=== PATIENT | female | born 1965 | race Caucasian/White ===

== ENCOUNTER 2024-12-13 10:01 | Outpatient (AMB) | payer MEDICAID, SELFPAY ==
--- NOTE | 2024-12-13 10:03 | A.OFFVIS_ITS ---
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 States pain started in 2020 ago and has worsen. She is experiencing shooting pain, numbness and tingling down her left arm in to her hand. States all her fingers go numb and swells as well, she has weakness in hand and is causing her to drop objects. She recalls receiving an injection in her shoulder many years ago in [place] but doesn't recall if it helped or not. She has not done P.T in the past. Reports she fell about 1 year ago and her shoulder was bruised. She believes her pain started after she had her covid vaccine in 2020. No EMG done. Patient did not bring her medication list but will bring in next time. She is aware she may also call us with her medication list. Nuclear Fuel Enrichment Technician Required: Yes Nuclear Fuel Enrichment Technician Name: Jean-Pierre [id number] Accompanied by: Jamir friend Allergies No Known Allergies Allergy (Verified 12/13/24 10:24) HPI Comments Details: Here for left shoulder per intake above. Since 2020 after COVID vaccine. Nowadays, pain is on upper trapezius and back of left shoulder, radiating to arm, down to hands, with numbness on all his fingers. Denies posterior neck pain. Sometimes left hand gets swollen. Also reports pain on left wrist. No past imaging or work up for this. History of lumbar and knee pain. [facility] Social History Current occupational status: unemployed and disabled Current occupation: right hand Review of Systems Const All systems reviewed & are unremarkable except as noted in HPI and below Physical Exam Constitutional: Patient appears to be in no acute distress, well nourished and well developed. MSK: Inspection reveals appropriate head and neck positioning. Some tenderness over left trapezius. Tender in left subacromial area. Cervical ROM was full. Spurling's sign negative. Left shoulder limited with active range of motion especially in flexion and abduction due to pain. No ligamentous laxity or crepitance. No increased effusion. Empty can test is positive left. Drop arm test is negative. Speed's test is negative. Neer's test is positive left. Hawkin's test is positive left. Apprehension test and Relocation test are negative. Positive left carpal compression and left elbow Tinel's sign. Fingers appeared swollen although symmetric to the right? Strength is 5/5 in all muscle groups tested. No increased tone noted. Neurological: Neurologic examination of the upper and lower extremities was nonfocal with intact sensation, muscle stretch reflexes and without focal motor deficits . Harrington?s negative bilaterally. Babinski was down going bilaterally. Clonus was negative. Gait is non-antalgic without loss of balance. Results Reviewed Results Reviewed: I reviewed records from the following: Reviewed notes from [facility] Dr. Singh 2023. 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 Prescribed gabapentin. Assessment & Plan Assessment & Plan (1) Left shoulder pain: Code(s): M25.512 - Pain in left shoulder Category: Medical Qualifiers: Chronicity: chronic Qualified Code(s): M25.512 - Pain in left shoulder; G89.29 - Other chronic pain (2) Numbness of left hand: Code(s): R20.0 - Anesthesia of skin Category: Medical (3) Joint pain: Code(s): M25.50 - Pain in unspecified joint Category: Medical Qualifiers: Joint pain location: wrist Laterality: left Qualified Code(s): M25.532 - Pain in left wrist Plan Chronic left shoulder pain. Left hand numbness. But she also has other diffuse joint pain and question of finger joint inflammation. Sending for left shoulder and left wrist/hand x-rays today. We will take some blood tests including STEPHON, RF and uric acid. Ruling out more systemic or autoimmune reasons for joint pain. We will schedule for EMG left upper extremity to rule out Carpal Tunnel Syndrome. Referring to physical therapy to work on range of motion of left shoulder. Assessment and plan discussed with patient, and patient was agreeable. All questions were answered thoroughly. Follow up 2 months or after PT and all the workup. Luz Israel MD, SETH Board Certified, [place] [employer] and Rehabilitation (ABPMR) Board Certified, [place] Board [employer] Electro[employer]ostic [employer] (ABEM) Orders: Orders NE nerve conduction velocity Today R20.0 - Anesthesia of skin NE electromyogram (EMG) Today R20.0 - Anesthesia of skin XR shoulder LT min 2V Today M25.50 - Pain in unspecified joint, M25.512 - Pain in left shoulder, R20.0 - Anesthesia of skin XR hand wrist LT Today M25.50 - Pain in unspecified joint, R20.0 - Anesthesia of skin STEPHON Reflex Titer and Pattern Today M25.50 - Pain in unspecified joint, M25.512 - Pain in left shoulder, R20.0 - Anesthesia of skin Rheumatoid Factor Today M25.50 - Pain in unspecified joint, M25.512 - Pain in left shoulder, R20.0 - Anesthesia of skin Uric Acid Today M25.50 - Pain in unspecified joint, M25.512 - Pain in left shoulder, R20.0 - Anesthesia of skin PT Evaluation and Treatment Today M25.512 - Pain in left shoulder Coding Level of Care Code New Pt Level 4 (93270) Diagnoses Chronic left shoulder pain M25.512; G89.29 Chronicity: chronic Numbness of left hand R20.0 Arthralgia of left wrist M25.532 Joint pain location: wrist Laterality: left
[2024-12-13 10:24] VITALS: BMI 60.8
== END 2024-12-13 12:11 | disposition home or self-care (01) ==
PROVIDERS: PCP Physician Assistant Medical; Visit Provider Physical Medicine & Rehabilitation
DX: M25.512 Pain in left shoulder (principal); G89.29 Other chronic pain; R20.0 Anesthesia of skin; M25.532 Pain in left wrist
CPT/HCPCS: 99203

== ENCOUNTER 2024-12-13 11:04 | Outpatient (REF) | payer MEDICAID, SELFPAY ==
[2024-12-13 12:16] LABS: Uric Acid 6.1 mg/dL (2.4-5.7)
[2024-12-13 12:18] LABS: Rheumatoid Factor < 13.0 IU/mL (<15.0)
[2024-12-18 13:39] LABS: Anti Nuclear Antibody Screen NEGATIVE (NEGATIVE)
== END 2024-12-13 11:05 | disposition home or self-care (01) ==
LOC: HO.10HDL 11:04
PROVIDERS: Visit Provider Physical Medicine & Rehabilitation
DX: M25.512 Pain in left shoulder (principal); M25.50 Pain in unspecified joint; R20.0 Anesthesia of skin
CPT/HCPCS: 36415; 84550; 86038; 86431

== ENCOUNTER 2025-01-04 11:59 | Outpatient (REF) | payer MEDICAID, SELFPAY | END 2025-01-04 12:00 | disposition home or self-care (01) | LOC: HO.NEURO 11:59 | PROVIDERS: PCP Physician Assistant Medical; Visit Provider Physical Medicine & Rehabilitation | DX: R20.0 Anesthesia of skin (principal) ==

== ENCOUNTER → 2025-01-04 12:02 | Outpatient (BNV) | payer MEDICAID, SELFPAY | PROVIDERS: PCP Physician Assistant Medical; Visit Provider Physical Medicine & Rehabilitation | DX: R20.0 Anesthesia of skin (principal); R20.2 Paresthesia of skin | CPT/HCPCS: 95886; 95911 ==

== ENCOUNTER 2025-01-09 12:37 | Outpatient (RCR) | payer MEDICAID, SELFPAY ==
--- NOTE | 2025-01-10 12:12 | MHC.PT.EP ---
[facility] [place] Office [place] Office [place] Office [address] [phone] F: [phone] F: [phone] F: [phone] F: [phone] Physical Therapy Plan of Care Date of Evaluation: 01/09/25 Date of Surgery: Diagnosis: LEFT shoulder pain (MD Dx) LEFT cervical radiculopathy and subacromial impingement syndrome (PT Dx) RS Assessment: Patient is a pleasant 59 y.o. Lithuanian speaking female who is referred to PT by Dr. Luz Israel MD of [facility] with Dx of LEFT shoulder pain. PT Dx is LEFT cervical radiculopathy and subacromial impingement syndrome. Patient impairments include chronic pain with radiculopathy, limited ROM in lumbar spine and hip, weakness in LEs; especially R quad, bilateral glutes, abdominal/core musculature with antalgic gait pattern, muscle guarding. Patient current functional limitations are lying on L shoulder, lifting items with L arm, carrying, wash her hair (reach and maintain arm there), rotation of her neck. Patient will benefit from skilled PT to address aforementioned impairments and functional limitations to meet established goals. Frequency and Duration: The patient will be seen 1-2x/week for 4 weeks Short Term Goals: 2 weeks Patient demonstrates consistency and independence with HEP to self manage symptoms. Patient presents with neutral cervical and shoulder posture in sitting without cues for correction. Usp Goals: 4 weeks Patient presents with increased cervical rotation 60 degrees bilaterally to look over shoulders for grocery shopping and driving. Patient presents with increased bilateral shoulder flexion AROM 120 degrees to be able to reach top of head for hair care. Treatment Plan: Modalities to reduce pain, spasms and effusion. Manual therapy to restore motion and function. Therapeutic exercise to improve strength and flexibility. Neuromuscular re-education for posture and balance. Therapeutic activities to return to functional activities of daily living. Electronically signed by: Fanta Holley, PT, DPT Please sign and return to therapist. Thank you for your referral.
--- NOTE | 2025-02-27 14:57 | MHC.PT.DC ---
[facility] [place] Office [place] Office [place] Office [address] Sander Hines [address] [phone] F: [phone] F: [phone] F: [phone] F: [phone] Physical Therapy Discharge Report Diagnosis: LEFT shoulder pain (MD Dx) LEFT cervical radiculopathy and subacromial impingement syndrome (PT Dx) RS Date of Surgery: Date of Evaluation: 01/09/25 Date of Discharge: 02/27/25 Treatments to Date: 1 Cancellations to Date: No Shows to Date: Discharge Status: Recommend MD Follow-up Discharge Summary: Amira only attended PT initial evaluation. She did not schedule any FUP appointments, unclear if she was waiting for insurance authorization or approval. Unable to determine effectiveness of PT interventions on her condition due to only being seen for initial evaulation. She was given education on posture and anatomy and HEP with stretches that visit. Electronically signed by: Fanta Holley, PT, DPT Please sign and return to therapist. Thank you for your referral.
== END 2025-02-27 14:57 | disposition home or self-care (01) ==
LOC: HO.PT 12:37
PROVIDERS: PCP Physician Assistant Medical; Visit Provider Physical Medicine & Rehabilitation
DX: M25.512 Pain in left shoulder (principal)
CPT/HCPCS: 97110; 97161; 97162

== ENCOUNTER 2025-02-07 09:41 | Outpatient (AMB) | payer MEDICAID, SELFPAY ==
[2025-02-07 10:28] VITALS: BMI 60.8
--- NOTE | 2025-02-07 10:28 | MHC.OFFVIS ---
Vital Signs 02/07/25 10:28 Height 4 ft 5 in Weight 243 lb BMI 60.8 Intake Visit Reasons: Inj-left shoulder injection Intake Note: Amira 59 yr old female presents today for her follow up visit for her left shoulder injection. At her last visit she was ordered a EMG study to R/O CTS and physical therapy for her shoulder. Patient had EMG done and states she has not attended P.T as P.T is refusing to schedule patient ,stating she has non compliance with attendance policy and needs info from insurance. Patients states she has went to P.T 3x and each time she was told they cant see her. Allergies No Known Allergies Allergy (Verified 02/07/25 10:33) HPI Comments Details: She is here for scheduled left shoulder injection. STEPHON and RF negative. Uric acid slightly elevated. Primary care physician has done some workup and referring her to Rheumatology. EMG done 01/04/2025 left upper extremity normal. [facility] Social History Current occupational status: unemployed and disabled Current occupation: right hand Physical Exam Vital Signs: BMI result Body Mass Index 60.8 Office Procedures AMB Joint Injection/Aspiration Joint Injection/Aspiration Details: Consent was obtained. The distal, lateral, and posterior edges of the LEFT acromion are palpated. Area is cleansed with betadine solution. A 27 gauge needle is inserted just inferior to the posterolateral edge of the acromion. The needle is directed toward the opposite chest. A solution containing [40 mg] Kenalog and [3 ml] of 2% Lidocaine is injected. Patient tolerated procedure well without complications. Post-injection instructions given. Primary Site: left shoulder Injected: 40 mg of, Kenalog and with 3 mL of ( 2% lidocaine) Coding 70487 - Large joint Procedure code (CPT) selection complete Results Reviewed Results Reviewed: Ordering Physician: Luz Cedeno Date of Service: 12/13/24 Procedure(s): XR shoulder LT min 2V Accession Number(s): [id number] cc: Shanda Law PA-C; Luz Cedeno~ EXAMINATION: XR SHOULDER, LEFT CLINICAL INFORMATION: M25.512 - Pain in left shoulder COMPARISON: None available. TECHNIQUE: 2 views of the left shoulder. FINDINGS: There is mild reduction in the AC joint space with periocular spurring. The glenohumeral joint spaces preserved. No visible acute fracture, dislocation or subluxation seen. The soft tissues are normal. XR/XR shoulder LT min 2V IMPRESSION: Mild degenerative changes left AC joint. Electronically signed by: Larry Orourke MD 12/13/2024 03:29 PM EST Assessment & Plan Assessment & Plan (1) DJD of left shoulder: Code(s): M19.012 - Primary osteoarthritis, left shoulder Category: Medical Qualifiers: Osteoarthritis type: primary Qualified Code(s): M19.012 - Primary osteoarthritis, left shoulder (2) Joint pain: Code(s): M25.50 - Pain in unspecified joint Category: Medical Qualifiers: Joint pain location: wrist Laterality: left Qualified Code(s): M25.532 - Pain in left wrist Plan tolerated procedure well. Assessment and plan discussed with patient, and patient was agreeable. All questions were answered thoroughly. Follow up 2-3 months. Luz Israel MD, SETH Board Certified, [place] Board [employer] and Rehabilitation (ABPMR) Board Certified, [place] Board [employer] Electrodiagnostic [employer] (ABEM) Orders: Orders AMB Joint Injection/Aspiration Today M19.012 - Primary osteoarthritis, left shoulder, M25.532 - Pain in left wrist Coding Level of Care Code Procedure Only Diagnoses Primary osteoarthritis of left shoulder M19.012 Osteoarthritis type: primary Arthralgia of left wrist M25.532 Joint pain location: wrist Laterality: left CPT Codes Coding - 59021 Large joint: 66643 - Large joint ([id number])
--- OUTSIDE RECORDS SUMMARY | 2025-02-07 11:36 | XMS_ITS | Clinical Summary ---
Author Organization [facility] Address [address] [place] [address] Care Team Providers Care Editor Sound Name Role Phone Shanda Law PA-C Primary Care Provider [phone] Source Comments PLEASE NOTE, if this patient is a minor, it may be UNLAWFUL to discuss sensitive information that is contained in these records (such as FAMILY PLANNING, MENTAL HEALTH or SUBSTANCE ABUSE) with the minor patient's parent or other person without the patient's specific authorization.[facility] Allergies Active Allergy Reactions Criticality Noted Date Comments Metformin Hives High 08/21/2024 Povidone-Iodine 11/24/2023 Shrimp Swelling High 12/27/2017 Medications miscellaneous medical supply miscIndications :Varicose veins of right leg with edema by miscellaneous route once daily Dx: Varicose Veins of right leg with edema, VICKI: 99, Supply: Compression Stockings (compression goal 15-20 mmHg) 2 Each 022 Active meloxicam (MOBIC) 7.5 mg tabletIndicatio ns:Spondylosis, thoracic Take 1 Tablet by mouth once daily 60 Tablet 1 023 Active naproxen (NAPROSYN) 500 mg tablet Take 500 mg by mouth 2 (two) times daily 024 Active tiZANidine (ZANAFLEX) 4 mg tablet Take 4 mg by mouth 3 (three) times daily as needed for muscle spasms 024 Active celecoxib (CELEBREX) 200 mg capsule TAKE 1 CAPSULE BY MOUTH ONCE DAILY WITH FOOD OR MILK 024 Active cholecalciferol , vitamin D3, (VITAMIN D3) 25 mcg (1,000 unit) capsuleIndicati ons:Vitamin D deficiency Take 1 Capsule by mouth once daily 90 Capsule 1 024 Active gabapentin (NEURONTIN) 100 mg capsule Take 1 Capsule by mouth 3 (three) times daily 90 Capsule 2 024 Active blood-glucose meter monitoring kitIndications: New onset type 2 diabetes mellitus (HCC-CMS) Use to test blood glucose twice daily. (Freestyle Lite) 1 Each 025 Active blood sugar diagnostic (BLOOD GLUCOSE TEST) stripsIndicatio ns:New onset type 2 diabetes mellitus (HCC-CMS) Use to test blood glucose twice daily. (Freestyle Lite) 100 Each 025 Active lancets 28 gaugeIndication s:New onset type 2 diabetes mellitus (HCC-CMS) Use to test blood glucose twice daily. (Freestyle Lite) 100 Each 025 Active alcohol swabsIndication s:New onset type 2 diabetes mellitus (HCC-CMS) Use to test blood glucose twice daily. 100 Each 025 Active hydrOXYzine HCL (ATARAX) 25 mg tablet TOME KAREN O DOS TABLETAS POR V A ORAL EVERY NIGHT AL ACOSTARSE CUANDO SEA NECESARIO 025 Active sertraline (ZOLOFT) 25 mg tablet TOME KAREN TABLETA POR V A ORAL TODOS LOS D WITH FOOD 025 Active empagliflozin (JARDIANCE) 10 mg tabIndications: New onset type 2 diabetes mellitus (HCC-CMS) Take 1 Tablet by mouth every morning 90 Tablet 1 025 Active lisinopriL-hydr ochlorothiazide 20-12.5 mg per tabletIndicatio ns:Essential hypertension TOME 1 TABLETA POR VIA ORAL TODOS [place] 90 Tablet 1 025 Active calcium carbonate-vitam in D3 600 mg-10 mcg (400 unit) tabletIndicatio ns:Vitamin D deficiency TOME DOS TABLETAS POR VIA ORAL TODOS [place] 180 Tablet 1 025 Active calcium carbonate-vitam in D3 600 mg-10 mcg (400 unit) tabletIndicatio ns:Vitamin D deficiency Take 2 Tablets by mouth once daily 180 Tablet 1 024 2024 Discontinued lisinopriL-hydr ochlorothiazide 20-12.5 mg per tabletIndicatio ns:Essential hypertension Take 1 Tablet by mouth once daily 90 Tablet 1 024 2024 Discontinued Active Problems Problem Noted Date Diagnosed Date Nontoxic nodular goiter 09/21/2024 Severe obesity (HCC-CMS) 07/05/2024 Primary osteoarthritis of both knees 04/04/2024 History of thyroid nodule 04/04/2024 Spondylosis, thoracic 10/17/2023 Adult BMI 40.0-44.9 kg/sq m (HCC-CMS) 02/09/2019 Vitamin D deficiency 02/09/2019 Prediabetes 01/10/2019 Essential hypertension 12/27/2017 Hypercholesteremia 12/27/2017 Colon cancer screening 12/27/2017 Breast cancer screening 12/27/2017 Overview (01/12/2018): 01/11/[address] [facility]- Mammogram Screening Digital No findings suspicious for malignancy. Please note, a negative imaging evaluation should never overrule a strongly suspicious finding on physical exam. BIRADS: Category 2: Benign BILATERAL Recommendation: Routine screening mammogram BILATERAL in 1 year. Multiple thyroid nodules 12/27/2017 Chronic pain of left knee 12/27/2017 Resolved Problems Problem Noted Date Diagnosed Date Resolved Date Encounter for routine adult health examination without abnormal findings 12/27/2017 Type 2 diabetes mellitus wit hout complication, without long-term current use of insulin (HCC-CMS) 12/27/2017 01/10/2019 Encounters Date Type Department Care Team Description 01/21/2025 3:20 PM EST Office Visit [address] [phone] Shanda Law PA-C New onset type 2 diabetes mellitus (HCC-CMS) (Primary Dx); Multiple joint pain 01/07/2025 10:00 AM EST Telemedicine Visit [address] [address] Shanda Law PA-C Dizziness (Primary Dx); Prediabetes; Primary hypertension; History of thyroid nodule; Abnormal blood level of uric acid; Dysuria; Left flank pain; New onset type 2 diabetes mellitus (HCC-CMS) 12/19/2024 3:00 PM EST [facility] [address] [place] [address] Caren Rothman RHD Encounter for dental examination (Primary Dx); Caries of enamel (incipient) 12/19/2024 Travel from Last 3 Months Immunizations Name Administration Dates Next Due Flu, Preservative Free 12/12/2021,10/23/2018, Hep B, Adult/Adol (ENERGIX/RECOMBIVAX) 0,06/25/2019,05/23/2019 Influenza (FLUBLOK),recombinant,injectable,preservati ve Free 09/20/2024 Moderna COVID-19 Vaccine, re d cap blue label, 12+ Primary Series 12/12/2021,04/16/2021,03/21/2021 TDAP 02/09/2019 ZOSTER VACCINE, RECOMBINANT (SHINGRIX) 3,07/19/2022 Family History Medical History Relation Name Comments No Known Problems Daughter 1 No Known Problems Daughter 2 Alzheimer's Disease Father Cancer Father Cancer Maternal Grandfather Alzheimer's Disease Mother No Known Problems Son Relation Name Status Comments Daughter 1 Alive Daughter 2 Alive Father Alive Maternal Grandfather Mother Alive Son Alive Social History Tobacco Use Types Packs/Day Years Used Date Smoking Tobacco: Former Cigarettes 2 37 1 981 - 2017 Smokeless Tobacco: Never Tobacco Cessation:Counseling Given: Not Answered Alcohol Use Standard Drinks/Week Comments No 0 (1 standard drink = 0.6 oz pur e alcohol) Social Connections Answer Date Recorded Connectedness 1 01/07/2025 Financial Resource Strain Answer Date R ecorded Financial Resource Strain 1 2024 Stress Answer Date Recorded Stress 1 01/07/2025 Physical Activity Answer Date Recorded Physical Activity 0 07/17/2019 Food Insecurity Answer Date Recorded Food 1 01/07/2025 Transportation Needs Answer Date Record ed Transportation 1 01/07/2025 Housing Stability Answer Date Recorded Housing 1 01/07/2025 Safety and Environment Answer Date [place] r[place] Safety 1 04/04/2024 Utilities Answer Date Recorded Utilities 1 01/07/2025 Employment Answer Date Recorded Stress 0 03/25/2023 Comments No Sex and Gender Information Value Date Recorded Sex Assigned at Female 12/27/2017 11:05 AM PST Legal Sex Female 12:37 PM PST Gender Identity Female 12/27/2017 11:05 AM PST Sexual Orientation Straight 12/27/2017 11 :05 AM PST Last Filed Vital Signs Vital Sign Reading Time Taken Comments Blood Pressure 120/78 01/21/2025 3:24 PM EST Pulse 84 01/21/2025 3:24 PM EST Temperature 36.9 ??C (98.4 ??F) 01/21/2025 3:24 PM ES T Respiratory Rate 20 01/21/2025 3:24 PM EST Oxygen Saturation 98% 10/10/2024 2:30 PM EST Inhaled Oxygen Concentration - - Weight 108.9 kg (240 lb) 01/21/2025 3:24 PM EST Height 162.6 cm (5' 4.02 ) 01/21/2025 3:24 PM ES T Body Mass Index 41.18 01/21/2025 3:24 PM EST Plan of Treatment Upcoming Encounters Date Type Department Care Team (Late st Contact Info) Description 02/12/2025 1:20 PM EDT Office Visit [address] [phone] Shanda Law PA-C [address] [place] [address] 02/12/2025 2:40 PM EDT Office Visit [address] [phone] Pauline Cortes RN [address] [place] [address] 06/19/2025 3:40 PM EDT Office Visit [facility] [address] [place] [phone] Caren Rothman RHD [address] [place] [address] Health Maintenance Due Date Last Done Comments Diabetes Foot Exam 1967 HPV Screening 1967 Retinopathy Screening 1980 Imm-Pneumococcal (1 of 2 - PCV) 1986 CT Colonography 2012 Colonoscopy 2012 Colorectal Cancer Screening 2012 FIT/gFOBT 2012 Fecal DNA 2012 Flexible Sigmoidoscopy 2012 Lung Cancer Screening 01/28/2024 01/27/2023 , 01/27/2023, 01/26/2023 [id number] ( season) 2025 12/12/2021, 04/16/2021, 03/21/2021 Postponed from 07/29/2024 (Patient postponement) Depression Monitoring 04/06/2025 01/07/2025 , 08/27/2024, 07/05/2024, Additional history exists Dental Prophy 06/20/2025 12/19/2024, 02/0 06/2024, 04/05/2023, Additional history exists Annual Preventive Care Visit 07/05/2025 07/05/2024, 10/12/2023, 07/19/2022, Additional history exists Tobacco Screening 07/05/2025 07/05/2024 Diabetes HbA1c 07/09/2025 01/09/2025, 06/30, 04/05/2024, Additional history exists Breast Cancer Screening (Mammogram) 08/08/2025 08/08/2024, 08/05/2023, 08/05/2023, Additional history exists Dental BW 12/21/2025 12/19/2024, 02/0 06/2024, 04/05/2023, Additional history exists Dental Examination 12/21/2025 12/19/2024, 0 01/05/2024, 04/05/2023, Additional history exists Dental Perio Charting 12/21/2025 12/19/2024 , 01/05/2024, 05/11/2022 Lipid Screening 01/09/2026 01/09/2025, 06/30, 04/05/2024, Additional history exists Serum Creatinine 01/09/2026 01/09/2025, , 04/05/2024, Additional history exists Diabetes Microalbumin (w/Creatinine) 01/22/2026 01/22/2025, 01/02/2018 Cervical Cancer Screening 10/12/2026 Pap + HPV 10/12/2026 10/12/2023, 01/04/2020 Pap Smear 10/12/2026 10/12/2023, 05/2020, 01/04/2020, Additional history exists Imm-DTaP/Tdap/Td (2 - Td or Tdap) 02/09/2029 02/09/2019 Dental FMX/Pano 12/21/2029 12/19/2024 HIV Screening Completed 02/09/2019 Hepatitis C Screening Completed 02/09/2019 Imm-Hepatitis B Completed 01/04/2020, 05/29, 05/23/2019 Imm-Zoster, Recombinant Completed 03/25/2023, 07/19 Imm-Influenza Completed 09/20/2024, 11/28, 10/23/2018, Additional history exists Alcohol and Drug Screen Completed 01/07/20, 08/27/2024, 07/05/2024, Additional history exists Cervical Ablation/Cold-Knife Conization Discontinued Cervical Cryotherapy Discontinued Colposcopy Discontinued Endometrial Biopsy Discontinued Excision/Leep Discontinued HPV Genotyping Discontinued Vaginal Pap Discontinued Vulvoscopy Discontinued Procedures Procedure Name Priority Date/Time Associated Diagnosis Comments ??RHEUMATOID ARTHRITIS DIAGNOSTIC PANEL 1 Routine 01/22/2025 4:25 PM EST MICROALBUMIN/CREATINI NE RATIO, URINE, RANDOM Routine 01/22/2025 4:25 PM EST New onset type 2 diabetes mellitus (HCC-CMS) SEDIMENTATION RATE RBC AUTOMATED Routine 01/22/2025 4:25 PM EST Multiple joint pain C-REACTIVE PROTEIN Routine 01/22/2025 4: 25 PM EST Multiple joint pain REFERRAL SCANNED DOCUMENT 01/21/2025 3:00 AM EST IMAGING SCANNED DOCUMENT 01/21/2025 3:00 AM EST RFLX - REFLEXIVE URINE CULTURE Routine 01/09/2025 8:49 AM EST URINALYSIS, COMPLETE W/REFLEX TO CULTURE Routine 01/09/2025 8:49 AM EST Dysuria ASSAY OF BLOOD/URIC ACID Routine 01/09/2025 8:35 AM EST Abnormal blood level of uric acid THYROID PANEL WITH TSH Routine 01/09/2025 8:35 AM EST History of thyroid nodule HGBA1C W/MPG Routine 01/09/2025 8:35 AM EST Dizziness Prediabetes LIPID PANEL Routine 01/09/2025 8:35 AM EST Dizziness Prediabetes Primary hypertension COMPREHENSIVE METABOLIC PANEL Routine 01/09/2025 8:35 AM EST Dizziness Prediabetes Primary hypertension BLOOD COUNT COMPLETE AUTO&AUTO DIFRNTL WBC Routine 01/09/2025 8:35 AM EST Dizziness Prediabetes Primary hypertension US RENAL (KIDNEYS) BILAT Routine 01/08/2025 3:00 AM EST Dysuria Left flank pain INTRAORAL - COMP SERIES OF RADIOGRAPHIC IMAGES Routine 12/19/2024 3:00 PM EST Caries of enamel (incipient) Encounter for dental examination DENTAL CASE MANAGEMENT - MOTIVATIONAL INTV Routine 12/19/2024 3:00 PM EST Caries of enamel (incipient) Encounter for dental examination PROPHYLAXIS - ADULT Routine 12/19/2024 3 :00 PM EST Caries of enamel (incipient) Encounter for dental examination COMP PERIODONTAL EVALUATION - NEW/EST PATIENT Routine 12/19/2024 3:00 PM EST Caries of enamel (incipient) Encounter for dental examination PERIODIC ORAL EVALUATION ESTABLISHED PATIENT Routine 12/19/2024 3:00 PM EST Caries of enamel (incipient) Encounter for dental examination CARIES RISK ASSESSMENT & DOC FINDING LOW RISK Routine 12/19/2024 3:00 PM EST Caries of enamel (incipient) Encounter for dental examination NUTRITIONAL COUNSELING CONTROL OF DENTAL DISEASE Routine 12/19/2024 3:00 PM EST Caries of enamel (incipient) Encounter for dental examination ORAL HYGIENE INSTRUCTIONS Routine 12/19/2024 3:00 PM EST Caries of enamel (incipient) Encounter for dental examination ORAL CANCER SCREENING Routine 12/19/2024 3:00 PM EST Caries of enamel (incipient) Encounter for dental examination CASE PRESENTATION SUBS DTL & EXTENSIVE TX PLN Routine 12/19/2024 3:00 PM EST Encounter for dental examination IMAGING SCANNED DOCUMENT 12/13/2024 3:00 AM EST IMAGING SCANNED DOCUMENT 12/13/2024 3:00 AM EST IMAGING SCANNED DOCUMENT 12/13/2024 3:00 AM EST IMAGING SCANNED DOCUMENT 12/13/2024 3:00 AM EST REFERRAL TO ORTHOPEDICS Routine 12/13/2024 3:00 AM EST Chronic left shoulder pain REFERRAL SCANNED DOCUMENT 12/06/2024 3:00 AM EST OTHER ORDERS SCANNED DOCUMENT 11/20/2024 3:00 AM EST REFERRAL FOR MAMMOGRAM Routine 08/08/2024 3:00 AM EDT Breast cancer screening by mammogram THIN PREP IMAGE PAP + HPV RNA E6/E7 W/RFLX HPV 16, 18/45 Routine 10/12/2023 1:22 PM EST Encounter for Papanicolaou smear for cervical cancer screening LOW DOSE CT LUNG SCREENING Routine 01/27/2023 3:00 AM EST Screening for lung cancer ANTIBODY HIV-1&HIV-2 SINGLE RESULT Routine 02/09/2019 10:32 AM EDT Encounter for general adult medical examination with abnormal findings HEPATITIS A,B,C PANEL Routine 02/09/2019 10:32 AM EDT Encounter for general adult medical examination with abnormal findings from Last 3 Months or Most Recently Relevant to Health Maintenance Results * ??RHEUMATOID ARTHRITIS DIAGNOSTIC PANEL 1 (01/22/2025 4:25 PM EST) RHEUMATOID FACTOR <10 <14 IU/mL [employer] CYCLIC CITRULLINATED PEPTIDE CCP AB IGG <16 19 UNITS [employer] Comment: Reference Range Negative: ?<20 Weak Positive: ? 20-39 Moderate Positive: ?? 40-59 Strong Positive: ? >59 INTERPRETATION See Note [employer] Comment: These serologic results may be found in 10-20% of patients with polyarthritis that is clinically and radiologically indistinguishable from RA. 01/22/2025 4:25 PM EST 01/22/2025 4:26 PM EST Shanda Law PA-C LAB - BLOOD DRAW Final Resul t Performing Organization Address [facility] Co de Phone Number [facility] [address] [address], [facility] [address] [address] * MICROALBUMIN/CREATININE RATIO, URINE, RANDOM (01/22/2025 4:25 PM EST) CREATININE, RANDOM URINE 83 20 - 275 mg/dL [facility] MICROALBUMIN 0.3 mg/dL [employer] [facility] Comment: Reference Range Not established MICROALBUMIN/CREA TININE RATIO, RANDOM URINE 4 <30 mg/g creat [facility] Comment: The ADA defines abnormalities in albumin excretion as follows: Albuminuria Category ?Result (mg/g creatinine) Normal to Mildly increased ?? <30 Moderately increased ? 30-299 Severely increased ? > OR = 300 The ADA recommends that at least two of three specimens collected within a 3-6 month period be abnormal before considering a patient to be within a diagnostic category. Urine Urine specimen / Unknown 01/22/2025 4:25 PM EST 01/22/2025 4:26 PM EST us Shanda Law PA-C LAB - NO BLOOD DRAW Final Re sult Performing Organization Address City/[facility] Co de Phone Number [facility] [address] [address], [facility] [address] [address] * (ABNORMAL) C-REACTIVE PROTEIN (01/22/2025 4:25 PM EST) C-REACTIVE PROTEIN 13.9(H) <8.0 mg/L [facility] [employer] [facility] Blood Blood / Unknown 01/22/2025 4 :25 PM EST 01/22/2025 4:26 PM EST [employer] Law PA-C LAB - BLOOD DRAW Edited Resu lt - Final Performing Organization Address City/[facility]/ZIP Co de Phone Number [facility] [address] [address], [employer] [address] [address] * (ABNORMAL) SEDIMENTATION RATE RBC AUTOMATED (01/22/2025 4:25 PM EST) SED RATE BY MODIFIED WESTERGREN 45(H) 0 - 30 mm/h [facility] Blood Blood / Unknown 01/22/2025 4 :25 PM EST 01/22/2025 4:26 PM EST deltamethodcea PA-C LAB - BLOOD DRAW Edited Resu lt - Final Performing Organization Address [facility] de Phone Number [facility] [address] [address], [employer] [address] [address] * REFERRAL SCANNED DOCUMENT (01/21/2025 3:00 AM EST) Only the most recent of2 resultswithin the time period is included. 01/21/2025 3:00 AM EST [employer] PA-C SCAN REFERRAL Final Result * IMAGING SCANNED DOCUMENT (01/21/2025 3:00 AM EST) Only the most recent of5 resultswithin the time period is included. 01/21/2025 3:00 AM EST [employer] Law PA-C SCAN IMAGING Final Result * URINALYSIS, COMPLETE W/REFLEX TO CULTURE (01/09/2025 8:49 AM EST) COLOR YELLOW YELLOW [email or web address] [facility] APPEARANCE CLEAR CLEAR [facility] SPECIFIC GRAVITY 1.020 1.001 - 1.035 [facility] URINE PH 6.5 5.0 - 8.0 [facility] GLUCOSE NEGATIVE NEGATIVE [facility] BILIRUBIN NEGATIVE NEGATIVE [facility] KETONES NEGATIVE NEGATIVE [facility] OCCULT BLOOD NEGATIVE NEGATIVE [facility] URINE PROTEIN NEGATIVE NEGATIVE N[facility] NITRITE NEGATIVE NEGATIVE [facility] LEUKOCYTE ESTERASE NEGATIVE NEGATIVE [facility] URINE LEUKOCYTES NONE SEEN < OR = 5 [facility] RBC NONE SEEN < OR = 2 NOM[facility] SQUAMOUS EPITHELIAL CELLS NONE SEEN < OR = 5 NOM[facility] BACTERIA NONE SEEN NONE SEEN [facility] HYALINE CAST NONE SEEN NONE SEEN [facility] SEE NOTE See Below [facility] Comment: This urine was analyzed for the presence of WBC, RBC, bacteria, casts, and other formed elements. Only those elements seen were reported. Urine Urine specimen / Unknown 01/09/2025 8:49 AM EST 01/09/2025 8:49 AM EST deltamethodomar DEXTER-C LAB - NO BLOOD DRAW Final Re sult Performing Organization Address [facility]/ZIP Co de Phone Number [facility] [address] [address], [facility] [address] [address] * RFLX - REFLEXIVE URINE CULTURE (01/09/2025 8:49 AM EST) REFLEXIVE URINE CULTURE See Below [email or web address] Comment:NO CULTURE INDICATED 01/09/2025 8:49 AM EST 01/09/2025 8:49 AM EST [employer] PA-C LAB - NO BLOOD DRAW Final Re sult Performing Organization Address City/[facility] Co de Phone Number [facility] [address] [address], [employer] [address] [address] * (ABNORMAL) HGBA1C W/MPG (01/09/2025 8:35 AM EST) HEMOGLOBIN A1C 6.6(H) <5.7 % of total Hgb [employer] Comment: For someone without known diabetes, a hemoglobin A1c value of 6.5% or greater indicates that they may have diabetes and this should be confirmed with a follow-up test. For someone with known diabetes, a value <7% indicates that their diabetes is well controlled and a value greater than or equal to 7% indicates suboptimal control. A1c targets should be individualized based on duration of diabetes, age, comorbid conditions, and other considerations. Currently, no consensus exists regarding use of hemoglobin A1c for diagnosis of diabetes for children. ?? MEAN PLASMA GLUCOSE 158 mg/dL (calc) [employer] Blood Blood / Unknown 01/09/2025 8 :35 AM EST 01/09/2025 8:35 AM EST us Shanda Law PA-C LAB - BLOOD DRAW Final Resul t Performing Organization Address [facility] Co de Phone Number [employer] [address] [address], [place] [address] [address] * THYROID PANEL WITH TSH (01/09/2025 8:35 AM EST) TSH 2.46 0.40 - 4.50 mIU/L [employer] T-3 UPTAKE 27 22 - 35 % [employer] [facility] [place] [employer] T-4 (THYROXINE), TOTAL 7.6 5.1 - 11.9 mcg/dL [employer] FREE T4 INDEX (T7) 2.1 1.4 - 3.8 [facility] Blood Blood / Unknown 01/09/2025 8 :35 AM EST 01/09/2025 8:35 AM EST us Shanda Law PA-C LAB - BLOOD DRAW Final Resul t Performing Organization Address [facility]/ZIP Co de Phone Number [email or web address] [address] [place] [address], [employer] [address] [address] * (ABNORMAL) BLOOD COUNT COMPLETE AUTO&AUTO DIFRNTL WBC (01/09/2025 8:35 AM EST) WHITE BLOOD CELL COUNT 6.7 3.8 - 10.8 Thousand/ uL [employer] RED BLOOD CELL COUNT 4.26 3.80 - 5.10 Million/u L [employer] HEMOGLOBIN 12.1 11.7 - 15.5 g/dL [employer] HEMATOCRIT 39.4 35.0 - 45.0 % [employer] MCV 92.5 80.0 - 100.0 fL [employer] MCH 28.4 27.0 - 33.0 pg [employer] MCHC 30.7(L) 32.0 - 36.0 g/dL [employer] Comment: For adults, a slight decrease in the calculated MCHC value (in the range of 30 to 32 g/dL) is most likely not clinically significant; however, it should be interpreted with caution in correlation with other red cell parameters and the patient's clinical condition. RDW 12.4 11.0 - 15.0 % [employer] PLATELET COUNT 331 140 - 400 Thousand/ uL [employer] MPV 10.8 7.5 - 12.5 fL [employer] ABSOLUTE NEUTROPHILS 4,355 1,500 - 7,800 cells/uL [employer] ABSOLUTE LYMPHOCYTES 1,782 850 - 3,900 cells/uL [employer] ABSOLUTE MONOCYTES 395 200 - 950 cells/uL [employer] ABSOLUTE EOSINOPHILS 114 15 - 500 cells/uL [employer] ABSOLUTE BASOPHILS 54 0 - 200 cells/uL [employer] NEUTROPHILS PCT 65 % [employer] [facility] LYMPHOCYTES 26.6 % [facility] [employer] [facility] MONOCYTES 5.9 % [facility] [facility] EOSINOPHILS 1.7 % [facility] AGNTattvaS Dsg[employer] BASOPHILS 0.8 % [facility] [employer] Blood Blood / Unknown 01/09/2025 8 :35 AM EST 01/09/2025 8:35 AM EST Shanda Law PA-C LAB - BLOOD DRAW Edited Resu lt - Final [email or web address] [address] [address], [email or web address] [facility] [address] [place] [address] * ASSAY OF BLOOD/URIC ACID (01/09/2025 8:35 AM EST) URIC ACID 5.0 2.5 - 7.0 mg/dL [facility] Comment: Therapeutic target for gout patients: <6.0 mg/dL ?? Blood Blood / Unknown 01/09/2025 8 :35 AM EST 01/09/2025 8:35 AM EST Shanda Law PA-C LAB - BLOOD DRAW Edited Resu lt - Final [facility] [address] [address], [facility] [address] [address] * (ABNORMAL) LIPID PANEL (01/09/2025 8:35 AM EST) Pathologist [facility] CHOLESTEROL, TOTAL 194 <200 mg/dL [facility] HDL CHOLESTEROL 49(L) > OR = 50 mg/dL [facility] TRIGLYCERIDES 123 <150 mg/dL N[facility] LDL-CHOLESTEROL 122(H) 99 mg/dL (calc) [facility] Comment: Reference range: <100 Desirable range <100 mg/dL for primary prevention; ?? <70 mg/dL for patients with CHD or diabetic patients with > or = 2 CHD risk factors. LDL-C is now calculated using the Brendan-Lauren calculation, which is a validated novel method providing better accuracy than the Friedewald equation in the estimation of LDL-C. Brendan OBRIEN et al. JOSUÉ. 2013;310(19): 5066-8648 (http://education.[employer]/faq/PXP387) CHOL/HDLC RATIO 4.0 <5.0 (calc) [facility] NON-HDL CHOLESTEROL 145(H) <130 mg/dL (calc) [facility] Comment: For patients with diabetes plus 1 major ASCVD risk factor, treating to a non-HDL-C goal of <100 mg/dL (LDL-C of <70 mg/dL) is considered a therapeutic option. Blood Blood / Unknown 01/09/2025 8 :35 AM EST 01/09/2025 8:35 AM EST us Shanda Law PA-C LAB - BLOOD DRAW Final Resul t [email or web address] [address] [address], [email or web address] [facility] [address] [place] [address] * (ABNORMAL) COMPREHENSIVE METABOLIC PANEL (01/09/2025 8:35 AM EST) Pathologist [facility] GLUCOSE 115(H) 65 - 99 mg/dL [facility] Comment: ?Fasting reference interval For someone without known diabetes, a glucose value between 100 and 125 mg/dL is consistent with prediabetes and should be confirmed with a follow-up test. UREA NITROGEN (BUN) 17 7 - 25 mg/dL [facility] CREATININE (blood) 0.70 0.50 - 1.03 mg/dL [facility] EGFR 101 > OR = 60 mL/min/1. 73m2 [facility] BUN/CREATININE RATIO SEE NOTE: [facility] Comment: ?? Not Reported: BUN and Creatinine are within ?? reference range. ? SODIUM 138 135 - 146 mmol/L [facility] POTASSIUM 4.4 3.5 - 5.3 mmol/L [facility] CHLORIDE 100 98 - 110 mmol/L [facility] CARBON DIOXIDE 29 20 - 32 mmol/L [facility] CALCIUM 10.2 8.6 - 10.4 mg/dL [facility] PROTEIN, TOTAL 7.4 6.1 - 8.1 g/dL [facility] ALBUMIN 4.7 3.6 - 5.1 g/dL [facility] GLOBULIN 2.7 1.9 - 3.7 g/dL (calc) [facility] ALBUMIN/GLOBULI N RATIO 1.7 1.0 - 2.5 (calc) [facility] BILIRUBIN, TOTAL 0.3 0.2 - 1.2 mg/dL [facility] ALKALINE PHOSPHATASE 66 37 - 153 U/L [facility] AST 15 10 - 35 U/L [facility] ALT 11 6 - 29 U/L [facility] Blood Blood / Unknown 01/09/2025 8 :35 AM EST 01/09/2025 8:35 AM EST Shanda Law PA-C LAB - BLOOD DRAW Edited Resu lt - Final [facility] [address] [address], [facility] [address] [address] * US RENAL (KIDNEYS) BILAT (01/08/2025 3:00 AM EST) 01/08/2025 3:0 0 AM EST Impressions [facility] - 01/09/2025 8:05 AM EST IMPRESSION: ? No stone, solid mass mass or hydronephrosis of either kidney. Oleg Santos MD Signed by Oleg Santos MD Read by: OLEG SANTOS M.D. Reviewed and Electronically Signed by: OLEG SANTOS M.D. Narrative [facility] - 01/09/2025 8:05 AM EST Original Report PROCEDURE: ??US RENAL INDICATION: ??Dysuria. TECHNIQUE: ??Ultrasound of the Kidneys. Technologist: ALLEN The technologist reports that the examination is limited. COMPARISON: ??None available FINDINGS: ?? The technologist describes the examination as limited. Incidental note is made of fatty liver. The right kidney measures 11.8 cm in length. ??Renal cortical echotexture is normal. There is no hydronephrosis. ??There are no stones. ??There are no cysts. The left kidney measures 11.3 cm in length. ??Renal cortical echotexture is normal. ?? There is borderline fullness of the renal pelvis. ??There is no hydronephrosis. ?? There are no stones. ??There are no cysts. The technologist submitted one single image of the urinary bladder. ??Evaluation of the bladder is regarded as incomplete. Procedure Note Default, [facility] Provider - 01/09/2025 Original Report PROCEDURE: US RENAL INDICATION: Dysuria. TECHNIQUE: Ultrasound of the Kidneys. Technologist: ALLEN The technologist reports that the examination is limited. COMPARISON: None available FINDINGS: The technologist describes the examination as limited. Incidental note is made of fatty liver. The right kidney measures 11.8 cm in length. Renal cortical echotexture is normal. There is no hydronephrosis. There are no stones. There are no cysts. The left kidney measures 11.3 cm in length. Renal cortical echotexture is normal. There is borderline fullness of the renal pelvis. There is no hydronephrosis. There are no stones. There are no cysts. The technologist submitted one single image of the urinary bladder. Evaluation of the bladder is regarded as incomplete. IMPRESSION: IMPRESSION: No stone, solid mass mass or hydronephrosis of either kidney. Oleg Santos MD Signed by Oleg Santos MD Read by: OLEG SANTOS M.D. Reviewed and Electronically Signed by: OLEG SANTOS M.D. Shanda Law PA-C IMG ULTRASOUND Edited Resul t - Final [facility] Corporate Office [address], [address] [place] [address], * REFERRAL TO ORTHOPEDICS (12/13/2024 3:00 AM EST) 12/13/2024 3:00 AM EST Bárbara Yepez PA-C REFERRAL Final Result * OTHER ORDERS SCANNED DOCUMENT (11/20/2024 3:00 AM EST) 11/20/2024 3:00 AM EST us Land Ani MCDANIEL SCAN OTHER ORDERS Final Resu lt * REFERRAL FOR MAMMOGRAM (08/08/2024 3:00 AM EDT) 08/08/2024 3:00 AM EDT us Shanda Law [facility] IMG RFL MAMMO Final Result * THIN PREP IMAGE PAP + HPV RNA E6/E7 W/RFLX HPV 16, 18/45 (10/12/2023 1:22 PM EST) CLINICAL INFORMATION See Note [facility] Comment:Routine exam LMP See Note [facility] Comment:[id number] PREV. PAP [facility] PREV. BX See Note [facility] Comment:NONE GIVEN SOURCE See Note [facility] Comment:Cervix STATEMENT OF ADEQUACY See Note [facility] Comment: Satisfactory for evaluation. Endocervical/transformation zone component present. INTERPRETATION/RESU LT See Note [facility] Comment: Cytology Results: Negative for intraepithelial lesion or malignancy. COMMENT See Note [facility] Comment: This Pap test has been evaluated with computer assisted technology. INTERIOR WIRER See Note [facility] Comment: YP, CT(ASCP) CT screening location: [address] ??[address] COMMENT [facility] HPV MRNA E6/E7 Not Detected Not Detected [facility] Comment: Methodology: Electronic Systems Technician-Mediated Amplification This assay detects E6/E7 viral messenger RNA (mRNA) from 14 high-risk HPV types (16,18,31,33,35,39,45,51,52,56,58,59,66,68). Cervical sources are required for HPV testing. If a vaginal source from a patient who has had a total hysterectomy with removal of cervix was submitted, please contact the testing laboratory for alternative testing options. For additional information, please refer to http://education.[employer]/faq/CPY164p1 (This link if provided for information/ educational purposes only.) Swab Cervix uteri structure / Unknown 10/12/2023 1:22 PM EST 10/13/2023 8:41 AM EST Narrative [facility] - 10/14/2023 12:49 PM EST EXPLANATORY NOTE: The Pap is a screening test for cervical cancer. It is not a diagnostic test and is subject to false negative and false positive results. It is most reliable when a satisfactory sample, regularly obtained, is submitted with relevant clinical findings and history, and when the Pap result is evaluated along with historic and current clinical information. us Bárbara Yepez PA-C LAB - NO BLOOD DRAW Final Re sult [facility] [address] [place] [address], [facility] [address] [place] [phone] * LOW DOSE CT LUNG SCREENING (01/27/2023 3:00 AM EST) 01/27/2023 3:00 AM EST us Bárbara Yepez PA-C IMG CT Final Result * (ABNORMAL) HEPATITIS A,B,C PANEL (02/09/2019 10:32 AM EDT) HEPATITIS B SURFACE ANTIBODY NEGATIVE NEGATIVE [facility] HEPATITIS B SURFACE ANTIGEN NEGATIVE NEGATIVE [facility] Comment: Over the counter supplements containing high doses of biotin may interfere with this assay. ??If interference is suspected, patients shoud be retested after refraining from biotin supplements for 72 hours. HEPATITIS C VIRUS DIAGNOSTIC NEGATIVE NEGATIVE [facility] HEPATITIS B CORE ANTIBODY NEGATIVE NEGATIVE [facility] HEPATITIS A ANTIBODY TOTAL POSITIVE(A) NEGATIVE [facility] Comment: Over the counter supplements containing high doses of biotin may interfere with this assay. ??If interference is suspected, patients shoud be retested after refraining from biotin supplements for 72 hours. Blood specimen (specimen) Blood / Unknown 02/09/2019 10:32 AM EDT 02/09/2019 10:36 AM EDT Narrative [facility] - 02/09/2019 12:38 PM EDT [employer] [address] Rubber Insulator - Anita Keating MD PT ID [id number] ORD# [id number] Ste[facility] LAB - BLOOD DRAW Edited Result - Final Performing Organization Address City/[facility]/ZIP Co de Phone Number [address] [address], [place] [phone] * HIV-1 & HIV-2 ANTIBODIES (02/09/2019 10:32 AM EDT) [facility] HIV 1 AND 2 ANTIBODY SCREEN NEGATIVE NEGATIVE [facility] Comment: This assay is a 4th generation assay allowing for earlier detection of HIV infection by detecting the presence of the HIV-1 p24 antigen as well as the traditional antibodies to HIV type 1 (including group O) and type 2. ??Use of a 4th generation assay is the current CDC recommendation for HIV screening. Blood specimen (specimen) Blood / Unknown 02/09/2019 10:32 AM EDT 02/09/2019 10:36 AM EDT [facility] - 02/09/2019 1:06 PM EDT Sissy Dunham, a member of [address] [address] Rubber Insulator - Anita Keating MD PT ID [id number] ORD# [id number] [facility] - BLOOD DRAW Final Result [address] [address], [place] [phone] from Last 3 Months or Most Recently Relevant to Health Maintenance [place] [address] [employer] Care Teams Editor Sound Relationship Specialty Start Date End Date Shanda Law PA-C [address] [place] [address] PCP - General FAMILY MEDICINEISACC 01/31/24
--- OUTSIDE RECORDS SUMMARY | 2025-02-07 11:36 | XMS_ITS | Encounter Summary ---
Author Organization [facility] Address [address] [place] [address] Care Team Providers Care Cement Tester Assistant Name Role Phone Unavailable Primary Care Provider Unavailabl e Encounter Details Date Type Department Care Team (Latest Contact Info) Description 02/07/2019 Abstract [facility] CONVERSIONS Dental, Provider, DDS Social History Tobacco Use Types Packs/Day Years Used Date Smoking Tobacco: Never Assessed Comments Unknown Sex and Gender Information Value Date Recorded Sex Assigned at Female 09/27/2022 10:34 AM EDT Legal Sex Female 10:34 AM EDT Gender Identity Not on file Sexual Orientation Not on file documented as of this encounter Plan of Treatment Not on file documented as of this encounter Visit Diagnoses Not on filedocumented in this encounter
--- OUTSIDE RECORDS SUMMARY | 2025-02-07 11:37 | XMS_ITS | Encounter Summary ---
Author Organization [facility] Address [address] [place] [address] Care Team Providers Care Crossing Flagman Name Role Phone Shanda Law PA-C Primary Care Provider + [phone] Reason for Referral * Rheumatology (Routine) - Pending Review Specialty Diagnoses / Procedures Referred By Heidy dawson Referred To Contact Diagnoses Multiple joint pain Shanda Law PA-C [address] [place] [address] Phone: tel: fax: [address] [address] Phone: tel: fax: Referral ID Status Reason Start Date Expiration Date Visits Requested Visits Authorized [id number] Pending Review Specialty Services Required 01/21/2025 01/21/2026 1 1 Comments Amira Kurtz Tomas Aquino is a 59 year old female patient who presents today for follow up. Recent labs show patient is now diabetic. Did lose 3 lbs since last visit. Patient states that she doesn't exercise at all. Patient states she has injured herself on treadmill so she stopped. Patient told not to exercise for now because she has tendonitis in her left ankle. Patient states she was exercising and did something wrong. Has not been back. Patient is getting a procedure done for her varicose veins. Patient had rheum factor and STEPHON done, both negative at ortho. She has multiple joint pain though and was told to get ref to rheum from her ortho. Reason for Visit * Reason Comments Follow Up Hypertension Diabetes Mellitus Pre -diabetic Encounter Details Date Type Department Care Team (Late st Contact Info) Description 01/21/2025 3:20 PM EST Office Visit [facility] [address] [place] [address] Shanda Law PA-C [address] [place] [address] New onset type 2 diabetes mellitus (HCC-CMS) (Primary Dx); Multiple joint pain Social History Tobacco Use Types Packs/Day Years Used Date Smoking Tobacco: Former Cigarettes 2 37 1 2017 Smokeless Tobacco: Never Alcohol Use Standard Drinks/Week Comments No 0 [...] Orientation Straight 12/27/2017 11 :05 AM PST documented as of this encounter Last Filed Vital Signs Vital Sign Reading Time Taken Comments Blood Pressure 120/78 01/21/2025 3:24 PM EST Pulse 84 01/21/2025 3:24 PM EST Temperature 36.9 ??C (98.4 ??F) 01/21/2025 3:24 PM ES T Respiratory Rate 20 01/21/2025 3:24 PM EST Oxygen Saturation - - Inhaled Oxygen Concentration - - Weight 108.9 kg (240 lb) 01/21/2025 3:24 PM EST Height 162.6 cm (5' 4.02 ) 01/21/2025 3:24 PM ES T Body Mass Index 41.18 01/21/2025 3:24 PM EST documented in this encounter Progress Notes * Shanda Law PA-C - 01/21/2025 3:38 PM EST Subjective: CC: Follow Up, Hypertension, and Diabetes Mellitus (Pre -diabetic) HPI: Amira Aquino is a 59 year old female patient who presents today for follow up. Recent labs show patient is now diabetic. Did lose 3 lbs since last visit. Patient states that she doesn't exercise at all. Patient states she has injured herself on treadmill so she stopped. Patient told not to exercise for now because she has tendonitis in her left ankle. Patient states she was exercising and did something wrong. Has not been back. Patient is getting a procedure done for her varicose veins. Patient had rheum factor and STEPHON done, both negative at ortho. She has multiple joint pain though and was told to get ref to rheum from her ortho. Last 3 BP Readings: Date: BP: 01/21/2025 120/78 12/19/2024 119/68 10/10/2024 136/82 Lab Results Component Value Date TRIGLYC 123 01/09/2025 CHOL 194 01/09/2025 HDL 49 (L) 01/09/2025 LDL 122 (H) 01/09/2025 CHOLHDL 4.0 01/09/2025 NONHDL 145 (H) 01/09/2025 Lab Results Component Value Date HGBA1C 6.6 (H) 01/09/2025 HGBA1C 6.1 (H) 07/27/2024 HGBA1C 6.0 (H) 04/05/2024 Allergies Allergen Reactions Metformin Hives Shrimp Swelling Povidone-Iodine Patient Active Problem List Diagnosis Essential hypertension Hypercholesteremia Colon cancer screening Breast cancer screening Multiple thyroid nodules Chronic pain of left knee Prediabetes Adult BMI 40.0-44.9 kg/sq m (HCC-CMS) Vitamin D deficiency Spondylosis, thoracic Primary osteoarthritis of both knees History of thyroid nodule Severe obesity ([facility]) Nontoxic nodular goiter Current Outpatient Medications: hydrOXYzine HCL (ATARAX) 25 mg tablet, TOME KAREN O DOS TABLETAS POR V A ORAL EVERY NIGHT AL ACOSTARSE CUANDO SEA NECESARIO, Disp: , Rfl: sertraline (ZOLOFT) 25 mg tablet, TOME KAREN TABLETA POR V A ORAL TODOS LOS D WITH FOOD, Disp: , Rfl: alcohol swabs, Use to test blood glucose twice daily., Disp: 100 Each, Rfl: 5 blood sugar diagnostic (BLOOD GLUCOSE TEST) strips, Use to test blood glucose twice daily. (Freestyle Lite), Disp: 100 Each, Rfl: 5 blood-glucose meter monitoring kit, Use to test blood glucose twice daily. (Freestyle Lite), Disp: 1 Each, Rfl: 0 lancets 28 gauge, Use to test blood glucose twice daily. (Freestyle Lite), Disp: 100 Each, Rfl: 5 gabapentin (NEURONTIN) 100 mg capsule, Take 1 Capsule by mouth 3 (three) times daily, Disp: 90 Capsule, Rfl: 2 cholecalciferol, vitamin D3, (VITAMIN D3) 25 mcg (1,000 unit) capsule, Take 1 Capsule by mouth oncedaily, Disp: 90 Capsule, Rfl: 1 celecoxib (CELEBREX) 200 mg capsule, TAKE 1 CAPSULE BY MOUTH ONCE DAILY WITH FOOD OR MILK, Disp: , Rfl: lisinopriL-hydrochlorothiazide 20-12.5 mg per tablet, Take 1 Tablet by mouth once daily, Disp: 90 Tablet, Rfl: 1 calcium carbonate-vitamin D3 600 mg-10 mcg (400 unit) tablet, Take 2 Tablets by mouth once daily, Disp: 180 Tablet, Rfl: 1 naproxen (NAPROSYN) 500 mg tablet, Take 500 mg by mouth 2 (two) times daily, Disp: , Rfl: tiZANidine (ZANAFLEX) 4 mg tablet, Take 4 mg by mouth 3 (three) times daily as needed for muscle spasms, Disp: , Rfl: meloxicam (MOBIC) 7.5 mg tablet, Take 1 Tablet by mouth once daily, Disp: 60 Tablet, Rfl: 1 miscellaneous medical supply [facility], by miscellaneous route once daily Dx: Varicose Veins of right leg with edema, VICKI: 99, Supply: Compression Stockings (compression goal 15-20 mmHg), Disp: 2 Each, Rfl: 0 Review of Systems Remainder ROS: See HPI, systems reviewed and are otherwise negative or noncontributory. Objective: Vitals: 01/21/25 1524 BP: 120/78 Pulse: 84 Resp: 20 Temp: 98.4 ??F (36.9 ??C) TempSrc: Oral Weight: 240 lb (108.9 kg) Height: 5' 4.02 (1.626 m) Body mass index is 41.18 kg/m??. Physical Exam Constitutional: General: She is not in acute distress. Cardiovascular: Rate and Rhythm: Normal rate and regular rhythm. Pulmonary: Effort: Pulmonary effort is normal. No respiratory distress. Breath sounds: Normal breath sounds. Neurological: Mental Status: She is alert and oriented to person, place, and time. 01/07/2025 9:27 AM Little interest or pleasure in doing things Not at all Feeling down, depressed or hopeless [include irritable if under 18] Not at all Trouble falling or staying asleep, or sleeping too much Not at all Feeling tired or having little energy Not at all Poor appetite or overeating Not at all Feeling bad about yourself - or that you are a failure or have let yourself or your family down Notat all Trouble concentrating on things like school work, reading or watching TV? Not at all Moving or speaking so slowly that other people could have noticed? Or the opposite - being so fidgety or restless that you have been moving around a lot more than usual Not at all Thoughts you would be better off or of hurting yourself in some way Not at all If you checked off any problems, how difficult have these problems made it for you to do your work,take care of things at home, or get along with other people? Not difficult at all PHQ-9 Total Score (Auto Calculated) 0 Depression Severity: None-minimal Assessment and Plan: Amira Aquino is a 59 year old female patient who was seen today for follow up. Will start on jardiance 10 mg for DM for now. Rheum ref made. Advised to call with any questions or concerns. Weight management:BMI follow up plan: The patient was counseled regarding nutrition and physical activity. Counseled for healthy lifestyle, dietary habits, physical activity and regular exercise.Encouraged to make healthier eating choices with less refined carbs and smaller portions along with regular exercise 3-4x/week for at least 20-30min. Avoid fried foods, oily foods and limit foods rich in dense calories. Increase fruits and vegetables. E11.9 New onset type 2 diabetes mellitus (HCC-[facility]) (primary encounter diagnosis) Plan : MICROALBUMIN/CREATININE RATIO, URINE, RANDOM EMPAGLIFLOZIN 10 MG TABLET - Take 1 Tablet by mouth every morning M25.50 Multiple joint pain Plan : C-REACTIVE PROTEIN SEDIMENTATION RATE RBC AUTOMATED REFERRAL TO RHEUMATOLOGY Return in about 1 week (around 01/28/2025) for f/u rheum panel/labs . documented in this encounter Miscellaneous Notes * Result Encounter Note - Falguni Rodriguez - 01/29/2025 11:47 AM EST Called spoke to patient results given. Patient verbalized understanding. Thank you, * Result Encounter Note - Shanda Law PA-C - 01/25/2025 4:13 PM EST Rheum panel negative. CRP and SED rate elevated, these are inflammatory markers. Rheum ref already made. Please forward results. Thanks! * Patient Instructions - Shanda Law PA-C - 01/21/2025 3:51 PM EST If you are not able to keep your appointment please call 24-48 hours before your appointment to cancel or reschedule. [facility] Address: [address], [place] [address] documented in this encounter Plan of Treatment Upcoming Encounters Date Type Department Care Team (Late st Contact Info) Description 02/12/2025 1:20 PM EDT Office Visit [facility] [address] [place] [address] Shanda Law PA-C [address] [place] [address] [place] [address] 02/12/2025 2:40 PM EDT Office Visit [facility] [address] [place] [phone] Pauline Cortes, RN [address] [place] [address] 06/19/2025 3:40 PM EDT Office Visit [facility] [address] [place] [phone] Caren Rothman, RHD [address] [place] [address] Scheduled Referrals Name Type Priority Associated Diagnoses Orde r Schedule REFERRAL TO RHEUMATOLOGY Referral Routine Multiple joint pain Ordered: 01/21/2025 documented as of this encounter Procedures Procedure Name Priority Date/Time Associated Diagnosis Comments ??RHEUMATOID ARTHRITIS DIAGNOSTIC PANEL 1 Routine 01/22/2025 4:25 PM EST MICROALBUMIN/CREATININ E RATIO, URINE, RANDOM Routine 01/22/2025 4:25 PM EST New onset type 2 diabetes mellitus (HCC-CMS) C-REACTIVE PROTEIN Routine 01/22/2025 4: 25 PM EST Multiple joint pain SEDIMENTATION RATE RBC AUTOMATED Routine 01/22/2025 4:25 PM EST Multiple joint pain documented in this encounter Results * ??RHEUMATOID ARTHRITIS DIAGNOSTIC PANEL 1 (01/22/2025 4:25 PM EST) RHEUMATOID FACTOR <10 <14 IU/mL [employer] [employer] CYCLIC CITRULLINATED PEPTIDE CCP AB IGG <16 19 UNITS [employer] [employer] Comment: Reference Range Negative: ?<20 Weak Positive: ? 20-39 Moderate Positive: ?? 40-59 Strong Positive: ? >59 INTERPRETATION See Note [employer] Comment: These serologic results may be found in 10-20% of patients with polyarthritis that is clinically and radiologically indistinguishable from RA. 01/22/2025 4:25 PM EST 01/22/2025 4:26 PM EST Shanda Law PA-C LAB - BLOOD DRAW Final Resul t Performing Organization Address [facility] de Phone Number [facility] [address] [address], [facility] [address] [address] * MICROALBUMIN/CREATININE RATIO, URINE, RANDOM (01/22/2025 4:25 PM EST) CREATININE, RANDOM URINE 83 20 - 275 mg/dL [facility] MICROALBUMIN 0.3 mg/dL [facility] Comment: Reference Range Not established MICROALBUMIN/CREA TININE RATIO, RANDOM URINE 4 <30 mg/g creat [facility] Comment: The ADA defines abnormalities in albumin [...] DRAW Final Re sult Performing Organization Address City/[facility]/ZIP Co de Phone Number [facility] [address] [address], [facility] [address] [address] * (ABNORMAL) SEDIMENTATION RATE RBC AUTOMATED (01/22/2025 4:25 PM EST) SED RATE BY MODIFIED WESTERGREN 45(H) 0 - 30 mm/h [facility] Blood Blood / Unknown 01/22/2025 4 :25 PM EST 01/22/2025 4:26 PM EST Shanda Law PA-C LAB - BLOOD DRAW Edited Resu lt - Final Performing Organization Address City/[facility]/ZIP Co de Phone Number [facility] [address] [address], [facility] [address] [address] * (ABNORMAL) C-REACTIVE PROTEIN (01/22/2025 4:25 PM EST) C-REACTIVE PROTEIN 13.9(H) <8.0 mg/L [facility] Blood Blood / Unknown 01/22/2025 4 :25 PM EST 01/22/2025 4:26 PM EST Shanda Law PA-C LAB - BLOOD DRAW Edited Resu lt - Final Performing Organization Address [facility] de Phone Number [facility] [address] [address], [employer] [address] [address] documented in this encounter Visit Diagnoses Diagnosis New onset type 2 diabetes mellitus (HCC-CMS)- Primary Multiple joint pain Pain in joint, multiple sites documented in this encounter Additional Health Concerns Assessment Noted Time PHQ-9 Depression Total Score: 0 01/07/20 25 9:27 AM PST documented as of this encounter Care Teams Crossing Flagman Relationship Specialty Start Date End Date Shanda Law PA-C [address] [place] [address] PCP - General FAMILY MEDICINE, [place] 01/31/24 documented as of this encounter
--- OUTSIDE RECORDS SUMMARY | 2025-02-07 11:37 | XMS_ITS | Clinical Summary ---
Author Organization [facility] ity Address [id number] [place] [phone] Care Team Providers Care Algologist Name Role Phone Shanda Law Primary Care Provider [phone] Social History Tobacco Use Types Packs/Day Years Used Date Smoking Tobacco: Never Assessed Comments Unknown Sex and Gender Information Value Date Recorded Sex Assigned at Not on file Legal Sex Female 9:51 AM EST Gender Identity Not on file Sexual Orientation Not on file Last Filed Vital Signs Vital Sign Reading Time Taken Comments Blood Pressure 120/76 04/22/2023 10:37 AM EDT Pulse - - Temperature - - Respiratory Rate - - Oxygen Saturation - - Inhaled Oxygen Concentration - - Weight 97.5 kg (215 lb) 04/22/2023 10:37 AM EDT Height 162.6 cm (5' 4 ) 04/22/2023 10:37 AM EDT Body Mass Index 36.9 04/22/2023 10:37 AM EDT Plan of Treatment Health Maintenance Due Date Last Done Comments Breast Cancer Screening 1967 DTaP,Tdap,and Td Vaccines (1 - Tdap) 1986 Hepatitis B Vaccines (1 of 3 - 19+ 3-dose series) 1986 Cervical Cancer Screening: P ap Smear 1988 Pneumococcal Vaccine: 50+ Ye ars (1 of 1 - PCV) 2017 Zoster Vaccines (1 of 2) 2017 Colorectal Cancer Screening: Colonoscopy 10/26/2022 Depression Screening 10/26/2022 HIV Screening 10/26/2022 Hepatitis C Screening 10/26/2022 Social Influencers of Health Screening 10/26/2022 COVID-19 Vaccine ( - 2023-2 5 season) 2024 Influenza Vaccine (#1) 2024 HIB Vaccines Aged Out No longer eligi ble based on patient's age to complete this topic HPV Vaccines Aged Out No longer eligi ble based on patient's age to complete this topic Hepatitis A Vaccines Aged Out No long er eligible based on patient's age to complete this topic IPV Vaccines Aged Out No longer eligi ble based on patient's age to complete this topic MMR Vaccines Aged Out No longer eligi ble based on patient's age to complete this topic Meningococcal ACWY Vaccine Aged Out N o longer eligible based on patient's age to complete this topic Meningococcal B Vacine Aged Out No lo nger eligible based on patient's age to complete this topic Pneumococcal Vaccine: Pediat rics (0 to 5 Years) and At-Risk Patients (6 to 64 Years) Aged Out No longer eligible b ased on patient's age to complete this topic RSV Immunization Patients Un tanesha 20 months Aged Out No longer eligible b ased on patient's age to complete this topic Varicella Vaccines Aged Out No longer eligible based on patient's age to complete this topic Care Teams Algologist Relationship Specialty Start Date End Date Shanda Law PA [address] [place] [address] PCP - General 07/06/24
--- OUTSIDE RECORDS SUMMARY | 2025-02-07 11:37 | XMS_ITS | Clinical Summary ---
Author Organization [employer] Address [address] [facility] [address] [place] [address] Care Team Providers Care Welt Pocket Machine Operator Name Role Phone Unavailable Primary Care Provider Unavailabl e Social History Tobacco Use Types Packs/Day Years Used Date Smoking Tobacco: Never Assessed Comments Unknown Sex and Gender Information Value Date Recorded Sex Assigned at Female 09/27/2022 10:34 AM EDT Legal Sex Female 10:34 AM EDT Gender Identity Not on file Sexual Orientation Not on file Plan of Treatment Health Maintenance Due Date Last Done Comments CT Colonography 1967 Colonoscopy 1967 Colorectal Cancer Screening 1967 Depression Screening 1967 FIT DNA/Cologuard 1967 FIT 1967 FOBT 1967 Sigmoidoscopy 1967 Alcohol/Substance Use Screening 1979 Tobacco Screening 1979 DTaP/Tdap/Td Vaccines (1 - Tdap) 1986 Hepatitis B Vaccines (1 of 3 - 19+ 3-dose series) 1986 Pap Smear 1988 Cervical Cancer Screening 1997 HPV/Cotest 1997 Mammogram 2007 Pneumococcal Vaccine: 50+ Ye ars (1 of 1 - PCV) 2017 Zoster Vaccines (1 of 2) 2017 COVID-19 Vaccine ( - 2023-2 5 season) 2024 Influenza Vaccine (#1) 2024 RSV Patients and Pa tients Aged 60 years or older (1 - 1-dose 75+ series) 2042 HIB Vaccines Aged Out No longer eligi [...] patient's age to complete this topic Meningococcal Vaccine Aged Out No ron vamshi eligible based on patient's age to complete this topic Pneumococcal Vaccine: Pediat rics (0 to 5 Years) and At-Risk Patients (6 to 49) Years) Aged Out No longer eligible b ased on patient's age to complete this topic RSV under 20 months Aged Out No longe r eligible based on patient's age to complete this topic Rotavirus Vaccines Aged Out No longer eligible based on patient's age to complete this topic
--- OUTSIDE RECORDS SUMMARY | 2025-02-07 11:37 | XMS_ITS | Encounter Summary ---
Author Organization [facility] Address [address] [place] [address] Care Team Providers Care Electronics Parts Sales Representative Name Role Phone Shadna Law PA-C Primary Care Provider [phone] Encounter Details Date Type Department Care Team (Late st Contact Info) Description 11/23/2023 Interim Notes [facility] [address] [place] [phone] Shy [place] [address] [place] [address] Social History Tobacco Use Types Packs/Day Years Used Date Smoking Tobacco: Former Cigarettes 2 37 1 [id number] Smokeless Tobacco: Never Alcohol Use Standard Drinks/Week Comments No 0 (1 standard drink = 0.6 oz pur e alcohol) Social Connections Answer Date Recorded Social Connections and Isolation 1 03/25/2023 Financial Resource Strain Answer Date R ecorded Financial Resource Strain 1 2022 Stress Answer Date Recorded Stress 1 03/25/2023 Physical Activity Answer Date Recorded Physical Activity 0 07/17/2019 Food Insecurity Answer Date Recorded Food 2 03/25/2023 Transportation Needs Answer Date Record ed Transportation 1 03/25/2023 Housing Stability Answer Date Recorded Housing 1 03/25/2023 Safety and Environment Answer Date [place] r[place] Safety 0 07/17/2019 Utilities Answer Date Recorded Utilities 1 03/25/2023 Employment Answer Date Recorded Stress 0 03/25/2023 Comments No Sex and Gender Information Value Date Recorded Sex Assigned at Female 12/27/2017 11:05 AM PST Legal Sex Female 12:37 PM PST Gender Identity Female 12/27/2017 11:05 AM PST Sexual Orientation Straight 12/27/2017 11 :05 AM PST COVID-19 Exposure Response Date Recorded In the last 10 days, have yo u been in contact with someone who was confirmed or suspected to have Coronavirus/COVID-19? No / Unsure 11/23/2023 3:41 PM EST documented as of this encounter Plan of Treatment Upcoming Encounters Date Type Department Care Team (Late st Contact Info) Description 02/12/2025 1:20 PM EDT Office Visit [address] [phone] Shanda Law PA-C [address] [place] [address] 02/12/2025 2:40 PM EDT Office Visit [address] [phone] Pauline Cortes RN [address] [place] [address] 06/19/2025 3:40 PM EDT Office Visit [facility] [address] [place] [phone] Caren Rothman RHD [address] [place] [address] documented as of this encounter Visit Diagnoses Not on filedocumented in this encounter Additional Health Concerns Assessment Noted Time PHQ-9 Depression Total Score: 0 11/23/20 3:47 PM PST documented as of this encounter Care Teams Electronics Parts Sales Representative Relationship Specialty Start Date End Date Shanda Law PA-C [address] [place] [address] PCP - General FAMILY MEDICINE PA 01/31/24 documented as of this encounter
--- OUTSIDE RECORDS SUMMARY | 2025-02-07 11:37 | XMS_ITS | Encounter Summary ---
Author Organization [facility] Address [address] [place] [address] Care Team Providers Care Adjunct Professor Of U.S. History Name Role Phone Shanda Hernandez PA-C Primary Care Provider + [phone] Reason for Referral * Care Coordination (Routine) - Authorized Specialty Diagnoses / Procedures Referred By Heidy dawson Referred To Contact Family Practice Diagnoses New onset type 2 diabetes mellitus (HCC-CMS) Shanda Hernandez PA-C [address] [place] [address] Phone: tel: fax: Pauline Cortes RN [address] [place] [address] Phone: tel: fax: Referral ID Status Reason Start Date Expiration Date Visits Requested Visits Authorized [id number] Authorized Specialty Services Required 01/13/2025 01/13/2026 1 1 Reason for Visit * Reason Comments Follow Up Left kidney pain for a few weeks ,dizziness ,short of breath Encounter Details Date Type Department Care Team (Latest Contact Info) Description 01/07/2025 10:00 AM EST Telemedicine Visit [facility] [address] [place] [address] Shanda Hernandez PA-C [address] [place] [address] Dizziness (Primary Dx); Prediabetes; Primary hypertension; History of thyroid nodule; Abnormal blood level of uric acid; Dysuria; Left flank pain; New onset type 2 diabetes mellitus ([facility]-CMS) Social History Tobacco Use Types Packs/Day Years Used Date Smoking Tobacco: Former Cigarettes 2 37 2017 Smokeless Tobacco: Never Alcohol Use Standard [...] suspected to have Coronavirus/COVID-19? No / Unsure 12/19/2024 2:35 PM EST documented as of this encounter Last Filed Vital Signs Vital Sign Reading Time Taken Comments Blood Pressure - - Pulse - - Temperature - - Respiratory Rate - - Oxygen Saturation - - Inhaled Oxygen Concentration - - Weight 110.2 kg (243 lb) 01/07/2025 9:27 AM EST Height 162.6 cm (5' 4 ) 01/07/2025 9:27 AM EST Body Mass Index 41.71 01/07/2025 9:27 AM EST documented in this encounter Progress Notes * Shanda Hernandez PA-C - 01/13/2025 8:49 PM ESTAddended by: SHANDA HERNANDEZ on: 01/13/2025 08:49 PM Modules accepted: Orders * Shanda Hernandez PA-C - 01/07/2025 9:51 AM EST The following visit was conducted via Audio only. I educated the patient/guardian on the terms of telehealth and the patient verbally consented to this telemedicine visit. The patient was identified using their Name, and [facility] ID. I identified myself as Shanda Hernandez PA-C from [facility]. It was conducted in a private space to protect HIPPA sensitive information. Precautions were taken to provide confidentiality and security and patient was made aware of privacy considerations. The patients location was obtained and is Pts home The patient/guardian was notified that the services were being provided from [facility] Location. The patient/guardian was notified how they can see a clinician in-person in the event of an emergency or if otherwise needed. Visit START TIME 9:52 AM EST END TIME 10:23 AM EST River Tester used during visit? No Chief Complaint Patient presents with Follow Up Left kidney pain for a few weeks ,dizziness ,short of breath HPI: Amira Aquino is a 59 year old female here for kidney pain with dizziness and SOB. Patient states getting episodes of dizziness with SOB, pale. Patient came here prior for this but states was told could only be seen for one complaint at a time. States that they've been occurring for last 2 months and have happened about twice a month. They come on suddenly, her vision gets blurry as well. She sits until it passes. Her arms get weak. Patient states episodes last about 2-3 minutes. Patient has been having increased thirst. She is prediabetic. States was told by ortho she has high uric acid. 6.1. Normal range is 3.5 to 7.2. Ortho name is Stacey Sosa. States that she's been having pain with urination x 2 weeks. States has pain on left side of back/feels like it's her kidney. Telemed so unable to examine patient. Problem List: Patient Active Problem List Diagnosis Essential hypertension Hypercholesteremia Colon cancer screening Breast cancer screening Multiple thyroid nodules Chronic pain of left knee Prediabetes Adult BMI 40.0-44.9 kg/sq m ([facility]) Vitamin D deficiency Spondylosis, thoracic Primary osteoarthritis of both knees History of thyroid nodule Severe obesity (HCC-CMS) Nontoxic nodular goiter Medications: Current Outpatient Medications Medication Sig Dispense Refill gabapentin (NEURONTIN) 100 mg capsule Take 1 Capsule by mouth 3 (three) times daily 90 Capsule 2 cholecalciferol, vitamin D3, (VITAMIN D3) 25 mcg (1,000 unit) capsule Take 1 Capsule by mouth once daily 90 Capsule 1 celecoxib (CELEBREX) 200 mg capsule TAKE 1 CAPSULE BY MOUTH ONCE DAILY WITH FOOD OR MILK lisinopriL-hydrochlorothiazide 20-12.5 mg per tablet Take 1 Tablet by mouth once daily 90 Tablet 1 calcium carbonate-vitamin D3 600 mg-10 mcg (400 unit) tablet Take 2 Tablets by mouth once daily 180Tablet 1 naproxen (NAPROSYN) 500 mg tablet Take 500 mg by mouth 2 (two) times daily tiZANidine (ZANAFLEX) 4 mg tablet Take 4 mg by mouth 3 (three) times daily as needed for muscle spasms meloxicam (MOBIC) 7.5 mg tablet Take 1 Tablet by mouth once daily 60 Tablet 1 miscellaneous medical supply misc by miscellaneous route once daily Dx: Varicose Veins of right legwith edema, VICKI: 99, Supply: Compression Stockings (compression goal 15-20 mmHg) 2 Each 0 No current facility-administered medications for this visit. Allergies: Allergies Allergen Reactions Metformin Hives Shrimp Swelling Povidone-Iodine ROS: PER HPI PE: Physical exam not performed. 01/07/2025 9:27 AM Little interest or pleasure [...] Score (Auto Calculated) 0 Depression Severity: None-minimal A/P: Amira Aquino is a 59 year old female here for multiple complaints. Labs ordered. Advisedpatient to call and make UC appt if she is not feeling well and not to wait. We have not seen patient since September. She states she doesn't like seeing other providers. Advised sometimes necessary especially if she has things like a UTI that are left untreated and can lead to kidney infection. US o rdered. Advised to call with any questions or concerns. R42 Dizziness (primary encounter diagnosis) Plan : BLOOD COUNT COMPLETE AUTO&AUTO DIFRNTL WBC COMPREHENSIVE METABOLIC PANEL LIPID PANEL HGBA1C W/MPG R73.03 Prediabetes Plan : BLOOD COUNT COMPLETE AUTO&AUTO DIFRNTL WBC COMPREHENSIVE METABOLIC PANEL LIPID PANEL HGBA1C W/MPG I10 Primary hypertension Plan : BLOOD COUNT COMPLETE AUTO&AUTO DIFRNTL WBC COMPREHENSIVE METABOLIC PANEL LIPID PANEL Z86.39 History of thyroid nodule Plan : THYROID PANEL WITH TSH E79.0 Abnormal blood level of uric acid Plan : ASSAY OF BLOOD/URIC ACID R30.0 Dysuria Plan : URINALYSIS, COMPLETE W/REFLEX TO CULTURE (Future) US RENAL (KIDNEYS) BILAT R10.9 Left flank pain Plan : US RENAL (KIDNEYS) BILAT Return for as scheduled. General precautions regarding the transmission of COVID-19 were discussed including hand hygiene, social distancing, and when to seek emergency medical care. documented in this encounter Miscellaneous Notes * Result Encounter Note - Falguni Rodriguez - 01/15/2025 10:43 AM EST Called spoke to patient Ultrasound results given. Thank you, * Result Encounter Note - Falguni Rodriguez - 01/15/2025 10:25 AM EST Called spoke to patient lab results given. Patient verbalized understanding. Patient reports that her brother had thyroid cancer and had thyroid removed due to cancer denies any pancreatitis. Also pt state that she went to the pharmacy and was told that Glucose machine not given due to not having it available. Thank you, * Result Encounter Note - Shanda Hernandez PA-C - 01/13/2025 8:49 PM EST Lipids elevated. The 10-year ASCVD risk score (Glenn DK, et al., 2019) is: 3%. Will continue to monitor and work on lifestyle changes with healthy diet and exercise. A1C up to 6.6 from 6.1. Now diabetic. Supplies sent, dm education ref made. Patient allergic to metformin Has BMI of 41. May benefit from GLP-1 injections. Is patient willing to inject weekly? If so,any history of pancreatitis or thyroid cancer in family or self? Please let me know. Please let pt know, thanks! * Patient Instructions - Shanda Hernandez PA-C - 01/07/2025 10:22 AM EST If you are not able to keep your appointment please call 24-48 hours before your appointment to cancel or reschedule. documented in this encounter Plan of Treatment Upcoming Encounters Date Type Department Care Team (Late st Contact Info) Description 02/12/2025 1:20 PM EDT Office Visit [address] [phone] Shanda Hernandez PA-C [address] [place] [address] 02/12/2025 2:40 PM EDT Office Visit [address] [phone] Pauline Cortes RN [address] [place] [address] 06/19/2025 3:40 PM EDT Office Visit [facility] [address] [place] [address] Lorna Caren, LISA [address] [place] [address] Scheduled Referrals Name Type Priority Associated Diagnoses Orde r Schedule REFERRAL TO DIABETES EDUCATION/NUTRITION Referral Routine New onset type 2 diabetes mellitus (HCC-CMS) Ordered: 01/13/2025 documented as of this encounter Procedures Procedure Name Priority Date/Time Associated Diagnosis Comments HGBA1C W/MPG Routine 01/09/2025 8:35 AM EST Dizziness Prediabetes THYROID PANEL WITH TSH Routine 01/09/2025 8:35 AM EST History of thyroid nodule BLOOD COUNT COMPLETE AUTO&AUTO DIFRNTL WBC Routine 01/09/2025 8:35 AM EST Dizziness Prediabetes Primary hypertension ASSAY OF BLOOD/URIC ACID Routine 01/09/2025 8:35 AM EST Abnormal blood level of uric acid LIPID PANEL Routine 01/09/2025 8:35 AM EST Dizziness Prediabetes Primary hypertension COMPREHENSIVE METABOLIC PANEL Routine 01/09/2025 8:35 AM EST Dizziness Prediabetes Primary hypertension US RENAL (KIDNEYS) BILAT Routine 01/08/2025 3:00 AM EST Dysuria Left flank pain documented in this encounter Results * URINALYSIS, COMPLETE W/REFLEX TO CULTURE (01/09/2025 8:49 AM EST) COLOR YELLOW YELLOW [facility] APPEARANCE CLEAR CLEAR [facility] SPECIFIC GRAVITY 1.020 1.001 - 1.035 [facility] URINE PH 6.5 5.0 - 8.0 [facility] GLUCOSE NEGATIVE NEGATIVE [facility] BILIRUBIN NEGATIVE NEGATIVE [facility] KETONES NEGATIVE NEGATIVE [facility] OCCULT BLOOD NEGATIVE NEGATIVE [facility] URINE PROTEIN NEGATIVE NEGATIVE [facility] NITRITE NEGATIVE NEGATIVE [facility] LEUKOCYTE ESTERASE NEGATIVE NEGATIVE [facility] URINE LEUKOCYTES NONE SEEN < OR = 5 [facility] RBC NONE SEEN < OR = 2 [facility] SQUAMOUS EPITHELIAL CELLS NONE SEEN < OR = 5 [facility] BACTERIA NONE SEEN NONE SEEN [facility] HYALINE CAST NONE SEEN NONE SEEN [facility] SEE NOTE See Below [facility] Comment: This urine was analyzed for the presence of WBC, RBC, bacteria, casts, and other formed elements. Only those elements seen were reported. Urine Urine specimen / Unknown 01/09/2025 8:49 AM EST 01/09/2025 8:49 AM EST us Shanda Hernandez PA-C LAB - NO BLOOD DRAW Final Re sult Performing Organization Address City/[facility]/ZIP Co [place] [address], [facility] [address] [address] * ASSAY OF BLOOD/URIC ACID (01/09/2025 8:35 AM EST) URIC ACID 5.0 2.5 - 7.0 mg/dL [facility] Comment: Therapeutic target for gout patients: <6.0 mg/dL ?? Blood Blood / Unknown 01/09/2025 8 :35 AM EST 01/09/2025 8:35 AM EST us Shanda Hernandez PA-C LAB - BLOOD DRAW Edited Resu lt - Final Performing Organization Address City/[facility]/ZIP Co de Phone Number [facility] [address] [address], [facility] [address] [address] * THYROID PANEL WITH TSH (01/09/2025 8:35 AM EST) TSH 2.46 0.40 - 4.50 mIU/L [facility] T-3 UPTAKE 27 22 - 35 % [facility] T-4 (THYROXINE), TOTAL 7.6 5.1 - 11.9 mcg/dL [facility] FREE T4 INDEX (T7) 2.1 1.4 - 3.8 [facility] Blood Blood / Unknown 01/09/2025 8 :35 AM EST 01/09/2025 8:35 AM EST Prernadarrel Hernandez PA-C LAB - BLOOD DRAW Final Resul t Performing Organization Address [facility] Co de Phone Number [facility] [address] [address], [employer] [address] [address] * (ABNORMAL) HGBA1C W/MPG (01/09/2025 8:35 AM EST) HEMOGLOBIN A1C 6.6(H) <5.7 % of total Hgb [email or web address] Comment: For someone without known diabetes, a [...] ?? MEAN PLASMA GLUCOSE 158 mg/dL (calc) [facility] Blood Blood / Unknown 01/09/2025 8 :35 AM EST 01/09/2025 8:35 AM EST Shanda Hernandez PA-C LAB - BLOOD DRAW Final Resul t Performing Organization Address City/[facility]/ZIP Co de Phone Number [facility] [address] [address], [employer] [address] [address] * (ABNORMAL) LIPID PANEL (01/09/2025 8:35 AM EST) CHOLESTEROL, TOTAL 194 <200 mg/dL [facility] HDL CHOLESTEROL 49(L) > OR = 50 mg/dL [facility] TRIGLYCERIDES 123 <150 mg/dL [email or web address] LDL-CHOLESTEROL 122(H) 99 mg/dL (calc) [email or web address] Comment: Reference range: <100 Desirable range <100 mg/dL for primary prevention; ?? <70 mg/dL for patients with CHD or diabetic patients with > or = 2 CHD risk factors. LDL-C is now calculated using the Charles calculation, which is a validated novel method providing better accuracy than the Friedewald equation in the estimation of LDL-C. Brendan SS et al. JOSUÉ. 2013;310(67): 8943-9090 (http://education.WeSpeke/faq/QFW229) CHOL/HDLC RATIO 4.0 <5.0 (calc) [email or web address] NON-HDL CHOLESTEROL 145(H) <130 mg/dL (calc) [email or web address] Comment: For patients with diabetes plus 1 major ASCVD risk factor, treating to a non-HDL-C goal of <100 mg/dL (LDL-C of <70 mg/dL) is considered a therapeutic option. Blood Blood / Unknown 01/09/2025 8 :35 AM EST 01/09/2025 8:35 AM EST us Shanda Hernandez PA-C LAB - BLOOD DRAW Final Resul t [facility] [address] [place] [phone], [email or web address] [address] [place] [phone] * (ABNORMAL) COMPREHENSIVE METABOLIC PANEL (01/09/2025 8:35 AM EST) GLUCOSE 115(H) 65 - 99 mg/dL [email or web address] Comment: ?Fasting reference interval For someone without known diabetes, a glucose value between 100 and 125 mg/dL is consistent with prediabetes and should be confirmed with a follow-up test. UREA NITROGEN (BUN) 17 7 - 25 mg/dL [email or web address] CREATININE (blood) 0.70 0.50 - 1.03 mg/dL [email or web address] EGFR 101 > OR = 60 mL/min/1. 73m2 [email or web address] BUN/CREATININE RATIO SEE NOTE: [email or web address] Comment: ?? Not Reported: BUN and Creatinine are within ?? reference range. ? SODIUM 138 135 - 146 mmol/L [facility] POTASSIUM 4.4 3.5 - 5.3 mmol/L [facility] [employer] [facility] CHLORIDE 100 98 - 110 mmol/L [facility] CARBON DIOXIDE 29 20 - 32 mmol/L [facility] CALCIUM 10.2 8.6 - 10.4 mg/dL [email or web address] PROTEIN, TOTAL 7.4 6.1 - 8.1 g/dL [facility] ALBUMIN 4.7 3.6 - 5.1 g/dL [facility] GLOBULIN 2.7 1.9 - 3.7 g/dL (calc) [facility] ALBUMIN/GLOBULI N RATIO 1.7 1.0 - 2.5 (calc) [facility] BILIRUBIN, TOTAL 0.3 0.2 - 1.2 mg/dL [facility] ALKALINE PHOSPHATASE 66 37 - 153 U/L [facility] AST 15 10 - 35 U/L [facility] ALT 11 6 - 29 U/L [facility] Blood Blood / Unknown 01/09/2025 8 :35 AM EST 01/09/2025 8:35 AM EST Shanda Hernandez PA-C LAB - BLOOD DRAW Edited Resu lt - Final [facility] [address] [address], [facility] [address] [phone] * (ABNORMAL) BLOOD COUNT COMPLETE AUTO&AUTO DIFRNTL WBC (01/09/2025 8:35 AM EST) WHITE BLOOD CELL COUNT 6.7 3.8 - 10.8 Thousand/ uL [email or web address] RED BLOOD CELL COUNT 4.26 3.80 - 5.10 Million/u L [facility] HEMOGLOBIN 12.1 11.7 - 15.5 g/dL [facility] HEMATOCRIT 39.4 35.0 - 45.0 % [facility] MCV 92.5 80.0 - 100.0 fL [facility] MCH 28.4 27.0 - 33.0 pg [email or web address] MCHC 30.7(L) 32.0 - 36.0 g/dL [email or web address] Comment: For adults, a slight decrease in the calculated MCHC value (in the range of 30 to 32 g/dL) is most likely not clinically significant; however, it should be interpreted with caution in correlation with other red cell parameters and the patient's clinical condition. RDW 12.4 11.0 - 15.0 % [email or web address] PLATELET COUNT 331 140 - 400 Thousand/ uL [email or web address] MPV 10.8 7.5 - 12.5 fL [email or web address] ABSOLUTE NEUTROPHILS 4,355 1,500 - 7,800 cells/uL [email or web address] ABSOLUTE LYMPHOCYTES 1,782 850 - 3,900 cells/uL [email or web address] ABSOLUTE MONOCYTES 395 200 - 950 cells/uL [email or web address] ABSOLUTE EOSINOPHILS 114 15 - 500 cells/uL [email or web address] ABSOLUTE BASOPHILS 54 0 - 200 cells/uL [email or web address] NEUTROPHILS PCT 65 % [facility] [employer] LYMPHOCYTES 26.6 % [facility] MONOCYTES 5.9 % [facility] [facility] EOSINOPHILS 1.7 % [facility] BASOPHILS 0.8 % [facility] Blood Blood / Unknown 01/09/2025 8 :35 AM EST 01/09/2025 8:35 AM EST us Shanda Hernandez PA-C LAB - BLOOD DRAW Edited Resu lt - Final [facility] [address] [place] [phone], [email or web address] [address] [place] [phone] * US RENAL (KIDNEYS) BILAT (01/08/2025 3:00 AM EST) 01/08/2025 3:00 AM EST [facility] - 01/09/2025 8:05 AM EST IMPRESSION: ? No stone, solid mass mass or hydronephrosis of either kidney. Oleg Santos MD Signed by Olge Santos MD Read by: OLEG SANTOS M.D. Reviewed and Electronically Signed by: OLEG SANTOS M.D. [facility] - 01/09/2025 8:05 AM EST [...] is regarded as incomplete. Procedure Note Default, [facility] Provider - 01/09/2025 Original Report PROCEDURE: US [...] Electronically Signed by: OLEG SANTOS M.D. Shanda Hernandez PA-C IMG ULTRASOUND Edited Resul t - Final [facility] Corporate Office [address], [address] [place] [address], [place] [phone] documented in this encounter Visit Diagnoses Diagnosis Dizziness- Primary Dizziness and giddiness Prediabetes Other abnormal glucose Primary hypertension Unspecified essential hypertension History of thyroid nodule Personal history of other endocrine, metabolic, and immunity disorders Abnormal blood level of uric acid Dysuria Left flank pain Abdominal pain, unspecified site New onset type 2 diabetes mellitus (HCC-CMS) documented in this encounter Additional Health Concerns Assessment Noted Time PHQ-9 Depression Total Score: 0 01/07/20 25 9:27 AM PST documented as of this encounter Care Teams Adjunct Professor Of U.S. History Relationship Specialty Start Date End Date Shanda Hernandez PA-C [address] [place] [address] PCP - General FAMILY MEDICINE, [facility] 01/31/24 documented as of this encounter
== END 2025-02-07 10:49 | disposition home or self-care (01) ==
LOC: HO.HOS 09:42
PROVIDERS: PCP Physician Assistant Medical; Visit Provider Physical Medicine & Rehabilitation
DX: M19.012 Primary osteoarthritis, left shoulder (principal); M25.532 Pain in left wrist
CPT/HCPCS: 20610

== ENCOUNTER → 2025-02-07 09:41 | Outpatient (BNVA) | payer MEDICAID, SELFPAY | PROVIDERS: PCP Physician Assistant Medical; Visit Provider Physical Medicine & Rehabilitation | DX: M19.012 Primary osteoarthritis, left shoulder (principal); M25.532 Pain in left wrist | CPT/HCPCS: 20610; J2003; J3301 ==

== ENCOUNTER 2025-05-10 08:35 | Outpatient (AMB) | payer MEDICAID, SELFPAY ==
--- OUTSIDE RECORDS SUMMARY | 2025-05-10 08:45 | XMS_ITS | Encounter Summary ---
Author Organization [facility] Address [address] [place] [address] Care Team Providers Care Kinder Teacher Name Role Phone Shanda Law PA-C Primary Care Provider + [phone] Reason for Visit * Reason Comments Follow Up Follow up . Pt will like analysis and referrals information Encounter Details Date Type Department Care Team (Latest Contact Info) Description 05/06/2025 8:20 AM EDT Telemedicine Visit [facility] [address] [place] [address] Shanda Law PA-C [address] [place] [address] Multiple joint pain (Primary Dx); Vitamin D deficiency; Essential hypertension Social History Tobacco Use Types Packs/Day Years Used Date Smoking Tobacco: Former Cigarettes 2 37 1 981 - 2018 Smokeless Tobacco: Never Alcohol Use Standard Drinks/Week [...] - Inhaled Oxygen Concentration - - Weight 152 kg (335 lb) 05/06/2025 8:13 AM EDT Height 162.6 cm (5' 4 ) 05/06/2025 8:13 AM EDT Body Mass Index 57.5 05/06/2025 8:13 AM EDT documented in this encounter Progress Notes * Shanda Law PA-C - 05/06/2025 9:05 AM EDT The following visit was conducted via Audio only. I educated the patient/guardian on the terms of telehealth and the patient verbally consented to this telemedicine visit. The patient was identified using their Name, and [email or web address] ID. I identified myself as Shanda Law PA-C from [facility]. It was conducted in a private space to protect HIPPA sensitive information. Precautions were taken to provide confidentiality and security and patient was made aware of privacy considerations. The patients location was obtained and is Pts home The patient/guardian was notified that the services were being provided from [facility] Location. The patient/guardian was notified how they can see a clinician in-person in the event of an emergency or if otherwise needed. Visit START TIME 8:50 AM EDT END TIME 9:18 AM EDT Home Care Provider used during visit? No Chief Complaint Patient presents with Follow Up Follow up . Pt will like analysis and referrals information HPI: Amira Aquino is a 59 year old female here for follow up. A1C improved from 6.6 to 6.1. Patient is taking meds as prescribed. Still has multiple joint pain. Has not heard from rheum yet. Ref was made to [facility] but they aren't taking new patients. Patient having a lot of pain in joints and has trouble standing at times. Gabapentin 300 mg helps some, just takes 3 at night due todrowsiness. Lab Results Component Value Date HGBA1C 6.1 (H) 04/10/2025 HGBA1C 6.6 (H) 01/09/2025 HGBA1C 6.1 (H) 07/27/2024 Problem List: Patient Active Problem List Diagnosis Essential hypertension Hypercholesteremia Colon cancer screening Breast cancer screening Multiple thyroid nodules Chronic pain of left knee Prediabetes Adult BMI 40.0-44.9 kg/sq m ([facility]) Vitamin D deficiency Spondylosis, thoracic Primary osteoarthritis of both knees History of thyroid nodule Severe obesity ([facility]) Nontoxic nodular goiter Medications: Current Outpatient Medications Medication Sig Dispense Refill calcium carbonate-vitamin D3 600 mg-10 mcg (400 unit) tablet Take 1 Tablet by mouth once daily. 180Tablet 1 cholecalciferol, vitamin D3, (VITAMIN D3) 25 mcg (1,000 unit) capsule Take 1 Capsule by mouth once daily. 90 Capsule 1 lisinopriL-hydrochlorothiazide 20-12.5 mg per tablet Take 1 Tablet by mouth once daily. 90 Tablet 1 empagliflozin (JARDIANCE) 10 mg tab Take 1 Tablet by mouth every morning 90 Tablet 1 hydrOXYzine HCL (ATARAX) 25 mg tablet TOME KAREN O DOS TABLETAS POR V A ORAL EVERY NIGHT AL ACOSTARSECUANDO SEA NECESARIO sertraline (ZOLOFT) 25 mg tablet TOME KAREN TABLETA POR V A ORAL TODOS LOS D WITH FOOD alcohol swabs Use to test blood glucose twice daily. 100 Each 5 blood sugar diagnostic (BLOOD GLUCOSE TEST) strips Use to test blood glucose twice daily. (Freestyle Lite) 100 Each 5 blood-glucose meter monitoring kit Use to test blood glucose twice daily. (Freestyle Lite) 1 Each 0 lancets 28 gauge Use to test blood glucose twice daily. (Freestyle Lite) 100 Each 5 gabapentin (NEURONTIN) 100 mg capsule Take 1 Capsule by mouth 3 (three) times daily 90 Capsule 2 celecoxib (CELEBREX) 200 mg capsule TAKE 1 CAPSULE BY MOUTH ONCE DAILY WITH FOOD OR MILK naproxen (NAPROSYN) 500 mg tablet Take 500 [...] PER HPI PE: Physical exam not performed. 05/06/2025 8:12 AM Little interest or pleasure in doing [...] family down Notat all Trouble concentrating on things, such as reading the newspaper or watching television? Not at all Moving or speaking so [...] a 59 year old female here for follow up. Message sent to ref dept again.Sent 400 mg gabapentin once nightly. Advised to call in a week if doesn't hear from rheum or our ref dept. Advised to call with any questions or concerns. M25.50 Multiple joint pain (primary encounter diagnosis) Plan : GABAPENTIN 400 MG CAPSULE - Take 1 Capsule by mouth nightly at bedtime. E55.9 Vitamin D deficiency Plan : CALCIUM 600 MG ( CARBONATE)-VITAMIN D3 10 MCG (400 UNIT) TABLET - Take 1 Tablet by mouth once daily. CHOLECALCIFEROL (VITAMIN D3) 25 MCG (1,000 UNIT) CAPSULE - Take 1 Capsule by mouth once daily. I10 Essential hypertension Plan : LISINOPRIL 20 MG-HYDROCHLOROTHIAZIDE 12.5 MG TABLET - Take 1 Tablet by mouth once daily. Return in about 3 months (around 08/06/2025) for in person CPE . General precautions regarding the transmission of COVID-19 were discussed including hand hygiene, social distancing, and when to seek emergency medical care. documented in this encounter Miscellaneous Notes * Patient Instructions - Shanda Law PA-C - 05/06/2025 9:17 AM EDT If you are not able to keep your appointment please call 24-48 hours before your appointment to cancel or reschedule. documented in this encounter Plan of Treatment Upcoming Encounters Date Type Department Care Team (Late st Contact Info) Description 05/16/2025 11:20 AM EDT Office Visit [facility] [address] [place] [address] Katharina Tirado DO [address] [place] [address] Elvi Lam [address] [place] [address] 06/19/2025 3:40 PM EDT Office Visit [facility] [address] [place] [address] Caren Rothman RHD [address] [place] [address] documented as of this encounter Visit Diagnoses Diagnosis Multiple joint pain- Primary Pain in joint, multiple sites Vitamin D deficiency Essential hypertension documented in this encounter Additional Health Concerns Assessment Noted Time PHQ-9 Depression Total Score: 0 05/06/20 25 8:12 AM PDT documented as of this encounter Care Teams Kinder Teacher Relationship Specialty Start Date End Date Shanda Law PA-C [address] [facility] [place] [address] PCP - General [facility] 3/5/24 documented as of this encounter
--- NOTE | 2025-05-10 08:59 | A.OFFVIS_ITS ---
Vital Signs 05/10/25 09:00 Height 4 ft 5 in Weight 243 lb BMI 60.8 Intake Visit Reasons: OV- Left Shoulder OA - Last INJ 02.07.25 Intake Note: Amira is a 59 year old right hand dominant female who presents today for a follow up of her left shoulder s/p Left shoulder cortisone injection on 02/07/25. Patient reports that the injection in the left shoulder did not help, no relief. Patient reports that about a month ago the pain is now starting to go into the right shoulder and that both of her hands are having numbness/tingling. Patient states that she is talking Tylenol to help with the pain. Chemicals Fermentation Operator Required: Yes Chemicals Fermentation Operator Services: Chemicals Fermentation Operator Present Chemicals Fermentation Operator Name: Axel Paniagua [id number] Allergies No Known Allergies Allergy (Verified 05/10/25 09:05) HPI Comments Details: Since 2020 after COVID vaccine. Nowadays, pain is on upper trapezius and back of left shoulder, radiating to arm, down to hands, with numbness on all his fingers. Denies posterior neck pain. Sometimes left hand gets swollen. Also reports pain on left wrist. History of lumbar and knee pain. On last visit, patient received left shoulder injection 02/07/2025. Left shoulder x-rays showed mild degenerative changes on AC joint. STEPHON and RF both negative. EMG was done by me 01/04/2025 which was normal bilateral upper extremity. Patient reports that the injection in the left shoulder did not help, no relief. Patient reports that about a month ago the pain is now starting to go into the right shoulder and that both of her hands are having numbness/tingling. Patient states that she is talking Tylenol to help with the pain. She admits to having neck pain since 1 month ago. Denies neck pain. Says this pain is connected to the shoulder pain. She did go to PT from Dec-February 2025 mainly for left shoulder. [facility] Medical History (Updated 05/10/25 @ 09:38 by Luz Israel MD) Bilateral elbow joint pain Shoulder pain, bilateral Numbness in both hands Social History Current occupational status: unemployed and disabled Current occupation: right hand Physical Exam Vital Signs: BMI result Body Mass Index 60.8 Constitutional: Patient appears to be in no acute distress, well nourished and well developed. MSK: Inspection reveals appropriate head and neck positioning. Tender bilateral upper trapezius and bilateral subacromial areas. Cervical ROM was full. Spurling's sign negative. Bilateral shoulder range of motion full. Tender to touch and elbows and finger joints. Neurological: Neurologic examination of the upper and lower extremities was nonfocal with intact sensation, muscle stretch reflexes and without focal motor deficits . Harrington?s negative bilaterally. Babinski was down going bilaterally. Clonus was negative. Gait is non-antalgic without loss of balance. Results Reviewed Results Reviewed: Ordering Physician: Luz Cedeno Date of Service: 12/13/24 Procedure(s): XR shoulder LT min 2V Accession Number(s): [id number] cc: Shanda Law PA-C; Luz Cedeno~ EXAMINATION: XR SHOULDER, LEFT CLINICAL INFORMATION: M25.512 - Pain in left shoulder COMPARISON: None available. TECHNIQUE: 2 views of the left shoulder. FINDINGS: There is mild reduction in the AC joint space with periocular spurring. The glenohumeral joint spaces preserved. No visible acute fracture, dislocation or subluxation seen. The soft tissues are normal. XR/XR shoulder LT min 2V IMPRESSION: Mild degenerative changes left AC joint. Electronically signed by: Larry Orourke MD 12/13/2024 03:29 PM [facility] Assessment & Plan Assessment & Plan (1) Shoulder pain, bilateral: Code(s): M25.511 - Pain in right shoulder; M25.512 - Pain in left shoulder Category: Medical Qualifiers: Chronicity: chronic Qualified Code(s): M25.511 - Pain in right shoulder; M25.512 - Pain in left shoulder; G89.29 - Other chronic pain (2) Bilateral elbow joint pain: Code(s): M25.521 - Pain in right elbow; M25.522 - Pain in left elbow Category: Medical (3) Numbness in both hands: Code(s): R20.0 - Anesthesia of skin Category: Medical Plan Bilateral shoulder, elbow and hand pain. Left shoulder x-ray mild degenerative changes in AC joint. EMG bilateral upper extremity normal. Positive STEPHON but negative RF. Question possibility of fibromyalgia. We will do several x-rays today: Cervical, right shoulder, bilateral elbows, bilateral hands. She has already scheduled to see Rheumatology in [place] in June. Follow up after rheumatology consult or around 3 months. Assessment and plan discussed with patient, and patient was agreeable. All questions were answered thoroughly. Luz Israel MD, SETH Board Certified, [place] Board [employer] Physical Medicine and Rehabilitation (ABPMR) Board Certified, [place] Board of Electrodiagnostic Medicine (ABEM) Orders: Orders XR elbow RT min 3V Today M25.521 - Pain in right elbow, M25.522 - Pain in left elbow XR elbow LT min 3V Today M25.521 - Pain in right elbow, M25.522 - Pain in left elbow XR hand LT min 3V Today M79.643 - Pain in unspecified hand XR cervical spine 3V Today M25.511 - Pain in right shoulder, M25.512 - Pain in left shoulder, M54.2 - Cervicalgia, R20.0 - Anesthesia of skin XR shoulder RT min 2V Today M25.511 - Pain in right shoulder, M25.512 - Pain in left shoulder XR hand RT min 3V Today M79.643 - Pain in unspecified hand Coding Level of Care Code Est Pt Level 4 (04863) Diagnoses Chronic pain of both shoulders M25.511; M25.512; G89.29 Chronicity: chronic Bilateral elbow joint pain M25.521; M25.522 Numbness in both hands R20.0
[2025-05-10 09:00] VITALS: BMI 60.8
== END 2025-05-10 09:34 | disposition home or self-care (01) ==
LOC: HO.HOS 08:36
PROVIDERS: PCP Physician Assistant Medical; Visit Provider Physical Medicine & Rehabilitation
DX: M25.511 Pain in right shoulder (principal); M25.512 Pain in left shoulder; G89.29 Other chronic pain; M25.521 Pain in right elbow; M25.522 Pain in left elbow; R20.0 Anesthesia of skin
CPT/HCPCS: 99214

== ENCOUNTER 2025-05-10 08:35 | Outpatient (REF) | payer MEDICAID, SELFPAY ==
--- NOTE | ~2025-05-10 | XR_ITS ---
EXAMINATION: XR ELBOW, RIGHT CLINICAL INFORMATION: M25.521 - Pain in right elbow COMPARISON: None available. TECHNIQUE: AP, lateral, and oblique views of the right elbow. FINDINGS: No fracture, dislocation, or suspicious bone lesion. Normal alignment. Joint spaces are maintained. There is no effusion. Small enthesophytes are present involving the medial and lateral epicondyles. Normal soft tissues. XR/XR elbow RT min 3V IMPRESSION: 1. No acute bony abnormalities. No joint effusion. 2. Small enthesophytes involving the medial and lateral epicondyles. Electronically signed by: Yuan Cruz MD 05/10/2025 10:27 AM EDT
--- NOTE | ~2025-05-10 | XR_ITS ---
EXAMINATION: XR HAND, RIGHT CLINICAL INFORMATION: M79.643 - Pain in unspecified hand COMPARISON: None available. TECHNIQUE: PA, lateral, and oblique views of the right hand. FINDINGS: No acute cortical disruption or malalignment. No lytic or blastic lesion. No subcutaneous emphysema. XR/XR hand RT min 3V IMPRESSION: No acute fracture or dislocation. Negative x-ray.. Electronically signed by: Hamilton Cifuentes MD 05/10/2025 10:32 AM EDT
--- NOTE | ~2025-05-10 | XR_ITS ---
EXAMINATION: XR ELBOW, LEFT CLINICAL INFORMATION: M25.521 - Pain in right elbow COMPARISON: None available. TECHNIQUE: AP, lateral, and oblique views of the left elbow. FINDINGS: No fracture, dislocation, or suspicious bone lesion. Normal alignment. Joint spaces are maintained. There is no effusion. Small enthesophytes are present involving the medial and lateral epicondyles. Normal soft tissues. XR/XR elbow LT min 3V IMPRESSION: 1. No acute bony abnormalities. No joint effusion. 2. Small enthesophytes involving the medial and lateral epicondyles. Electronically signed by: Yuan Cruz MD 05/10/2025 10:29 AM EDT
--- NOTE | ~2025-05-10 | XR_ITS ---
EXAMINATION: XR HAND, LEFT CLINICAL INFORMATION: M79.643 - Pain in unspecified hand COMPARISON: None available. TECHNIQUE: PA, lateral, and oblique views of the left hand. FINDINGS: No acute cortical disruption. No gross malalignment. No lytic or blastic lesions. No subcutaneous emphysema. No metallic or radiopaque foreign body. XR/XR hand LT min 3V IMPRESSION: No acute fracture or dislocation. Negative x-ray. Electronically signed by: Hamilton Cifuentes MD 05/10/2025 10:33 AM EDT
--- NOTE | ~2025-05-10 | XR_ITS ---
EXAMINATION: XR CERVICAL SPINE CLINICAL INFORMATION: M54.2 - Cervicalgia COMPARISON: None available. TECHNIQUE: 3 views of the cervical spine were obtained. FINDINGS: There is surgical junction is intact. Marginal osteophyte formation and endplate sclerosis at C5-6 and C6-7 and C7-T1 levels.. No acute cortical disruption or malalignment. No lytic or blastic lesions. XR/XR cervical spine 3V IMPRESSION: Multilevel cervical spondylosis. Electronically signed by: Hamilton Cifuentes MD 05/10/2025 10:30 AM EDT
--- NOTE | ~2025-05-10 | XR_ITS ---
EXAMINATION: XR SHOULDER, RIGHT CLINICAL INFORMATION: M25.511 - Pain in right shoulder COMPARISON: None available. TECHNIQUE: Two views of the right shoulder. FINDINGS: Degenerative changes in the acromioclavicular joint and the greater tuberosity of the humerus. No acute cortical disruption or malalignment. Multilevel thoracic spondylosis. XR/XR shoulder RT min 2V IMPRESSION: Degenerative changes without acute fracture or dislocation. Electronically signed by: Hamilton Cifuentes MD 05/10/2025 10:31 AM EDT
== END 2025-05-10 08:36 | disposition home or self-care (01) ==
LOC: HO.HOSX 08:35
PROVIDERS: PCP Physician Assistant Medical; Visit Provider Physical Medicine & Rehabilitation
DX: M54.2 Cervicalgia (principal)
CPT/HCPCS: 72040; 73030; 73080; 73130; 99212

== ENCOUNTER → 2025-05-10 09:40 | Outpatient (BNV) | payer MEDICAID, SELFPAY | PROVIDERS: PCP Physician Assistant Medical; Visit Provider Radiology Diagnostic Radiology | DX: M47.892 Other spondylosis, cervical region (principal); M19.011 Primary osteoarthritis, right shoulder; M77.11 Lateral epicondylitis, right elbow; M79.641 Pain in right hand; M77.12 Lateral epicondylitis, left elbow; M79.642 Pain in left hand | CPT/HCPCS: 72040; 73030; 73080; 73130 ==

== ENCOUNTER 2025-08-16 09:45 | Outpatient (AMB) | payer MEDICAID, SELFPAY ==
--- NOTE | 2025-08-16 09:59 | A.OFFVIS_ITS ---
Vital Signs 08/16/25 10:06 Height 5 ft 4 in Weight 248 lb BMI 42.6 Intake Visit Reasons: OV- Left Shoulder OA Intake Note: Amira is a 59 year old female right hand dominant who presents today for a follow up of the left shoulder. At last appointment on 05/10/25 patient was informed that she is to follow up after rheumatology consult and to bring in rheumatology notes. At today's visit she states that the pain in the shoulder is still the same, the pain is radiating down to her arm. She added that the right shoulder pain is now flaring up causing a sharp radiating pain down to her right hand, right pointer finger. Fraternity Adviser Required: Yes Fraternity Adviser Services: Fraternity Adviser Present Fraternity Adviser Name: [place] [id number] Allergies shrimp Adverse Reaction (Intermediate, Verified 08/16/25 10:12) Swelling Medication List - Last Reconciled 08/16/25 by Luz Israel MD alcohol swabs (BD Alcohol Swabs) pad topical BID blood sugar diagnostic (FreeStyle Lite Strips) As directed blood-glucose meter (FreeStyle Lite Meter kit) As directed calcium carbonate-vitamin D3 600 mg-10 mcg (400 unit) 2 tabs PO DAILY lancets (FreeStyle Lancets) As directed lisinopril-hydrochlorothiazide 20-12.5 mg 1 tab PO DAILY meloxicam 7.5 mg PO DAILY naproxen 500 mg PO BID tizanidine 4 mg PO PRN HPI Comments Details: Chronic diffuse pain, since 2020 after COVID vaccine. Patient received left shoulder injection 02/07/2025. She did not think it helped much. Left shoulder x-rays showed mild degenerative changes on AC joint. STEPHON and RF both negative. EMG was done by me 01/04/2025 which was normal bilateral upper extremity. She did go to PT from Dec-February 2025 mainly for left shoulder. Today reporting both shoulder pain. Right shoulder xray did show minimal arthritis, mostly on AC joint. Bilateral wrist xrays showed enthesopathy both medial and lateral areas. She does have elbow pain, but she maintains that whole arm is affected. Hand xrays unremarkable. She reports that right hand is difficult to grasp due to pain. Cervical xrays showed spondylosis. She does report posterolateral pain, together with the shoulder pain. She did see Dr. Franklin of [facility] who thought this was more fibromyalgia. PFSH Medical History (Updated 08/16/25 @ 11:20 by Luz Israel MD) Bilateral elbow joint pain Shoulder pain, bilateral Numbness in both hands Social History Current occupational status: unemployed and disabled Current occupation: right hand Physical Exam Vital Signs: BMI result Body Mass Index 42.6 Constitutional: Patient appears to be in no acute distress, well nourished and well developed. MSK: Inspection reveals appropriate head and neck positioning. Tender bilateral upper trapezius and bilateral subacromial areas. Cervical ROM was full. Spurling's sign negative. Bilateral shoulder range of motion full. Tender to touch and elbows and finger joints. Neurological: Neurologic examination of the upper and lower extremities was nonfocal with intact sensation, muscle stretch reflexes and without focal motor deficits . Harrington?s negative bilaterally. Babinski was down going bilaterally. Clonus was negative. Gait is non-antalgic without loss of balance. Results Reviewed Results Reviewed: Shoulder x-rays, elbow x-rays, hand x-ray, cervical x-ray all reviewed independently, results as above. Assessment & Plan Assessment & Plan (1) Cervical spondylosis: Code(s): M47.812 - Spondylosis without myelopathy or radiculopathy, cervical region Category: Medical (2) Shoulder pain, bilateral: Code(s): M25.511 - Pain in right shoulder; M25.512 - Pain in left shoulder Category: Medical Qualifiers: Chronicity: chronic Qualified Code(s): M25.511 - Pain in right shoulder; M25.512 - Pain in left shoulder; G89.29 - Other chronic pain (3) Joint pain: Code(s): M25.50 - Pain in unspecified joint Category: Medical Qualifiers: Joint pain location: wrist Laterality: left Qualified Code(s): M25.532 - Pain in left wrist (4) Bilateral elbow joint pain: Code(s): M25.521 - Pain in right elbow; M25.522 - Pain in left elbow Category: Medical (5) Fibromyalgia: Code(s): M79.7 - Fibromyalgia Category: Medical Plan Multiple joint pain. Some degree of osteoarthritis perhaps. Continues to have neck pain and shoulder pain. Would recommend MRI cspine to rule out nerve or cord compression, before we can conclude that her overall pain is really from fibromyalgia. Patient had undergone adequate conservative management including PT without improvement of condition. It would be reasonable to obtain further imaging such as MRI. An MRI would help rule out any serious condition, guide treatment and assess prognosis for recovery. Assessment and plan discussed with patient, and patient was agreeable. All questions were answered thoroughly. Follow up after MRI. Luz Israel MD, SETH Board Certified, [place] Board of Physical Medicine and Rehabilitation (ABPMR) Board Certified, [place] Board of Electrodiagnostic Medicine (ABEM) Orders: Orders MR cervical spine wo con Today M47.812 - Spondylosis without myelopathy or radiculopathy, cervical region, M54.12 - Radiculopathy, cervical region Coding Level of Care Code Est Pt Level 4 (97606) Complex EM visit Add On G2211 Diagnoses Cervical spondylosis M47.812 Chronic pain of both shoulders M25.511; M25.512; G89.29 Chronicity: chronic Arthralgia of left wrist M25.532 Joint pain location: wrist Laterality: left Bilateral elbow joint pain M25.521; M25.522 Fibromyalgia M79.7
[2025-08-16 10:06] VITALS: BMI 42.6
--- OUTSIDE RECORDS SUMMARY | 2025-08-16 10:21 | XMS_ITS | Encounter Summary ---
Author Organization [facility] Address [address] [place] [address] Care Team Providers Care Time Broker Name Role Phone Unavailable Primary Care Provider [...]
--- OUTSIDE RECORDS SUMMARY | 2025-08-16 10:21 | XMS_ITS | Clinical Summary ---
Author Organization [facility] Address [address] [place] [address] Care Team Providers Care Manager Development Name Role Phone Unavailable Primary Care Provider Unavailabl e Encounters Date Type Department Care Team Description 06/18/2025 Population Health Risk Score [facility] ([facility]) Department [address] [address] [place] [address] Provider, Population Health Generic from Last 3 Months Social History Tobacco Use Types Packs/Day Years [...] FIT DNA/Cologuard 1967 FIT 1967 FOBT 1967 Lipid Panel 1967 Sigmoidoscopy 1967 Disability Screening 1967 Alcohol/Substance Use Screening 1979 Tobacco Screening 1979 Hepatitis C Screening 1985 Pap Smear 1988 Cervical Cancer Screening 1997 HPV/Cotest 1997 Mammogram 2007 Pneumococcal Vaccine: 50+ Years (1 of 1 - PCV) 2017 COVID-19 Vaccine (4 - 2024- season) 2025 12/12/2021, 04/16/2021, 03/21/2021 Influenza Vaccine (#1) 2025 , 12/12/2021, 10/23/2018, Additional history exists DTaP/Tdap/Td Vaccines (2 - Td or Tdap) 02/09/2029 02/09/2019 RSV Patients and Patients Aged 60 years or older (1 - 1-dose 75+ series) 2042 HIV Screening Completed 02/09/2019 Hepatitis B Vaccines Completed 01/04/2020, 06/25/2019, 05/23/2019 Zoster Vaccines Completed 03/25/2023, 07/19/2022 HIB Vaccines Aged Out No longer eligi [...] age to complete this topic Meningococcal B Vaccine Aged Out No l onger eligible based on patient's age to complete [...]
--- OUTSIDE RECORDS SUMMARY | 2025-08-16 10:21 | XMS_ITS | Encounter Summary ---
Author Organization [facility] Address [address] [place] [address] Care Team Providers Care Open Winder Name Role Phone Shanda Law PA-C Primary Care Provider [phone] Encounter Details Date Type Department Care Team (Late st Contact Info) Description 11/23/2023 Interim Notes [facility] [address] [place] [id number] Shy Correia [place] [address] [place] [address] Social History Tobacco Use Types Packs/Day Years [...] Care Team (Late st Contact Info) Description 10/15/2025 3:00 PM EST Office Visit [facility] [address] [place] [address] Caren Rothman RHD [address] [place] [address] documented as of this encounter Visit Diagnoses Not on filedocumented in this encounter Additional Health Concerns Assessment Noted Time PHQ-9 Depression Total Score: 0 11/23/20 3:47 PM PST A Depression follow-up plan has been documented for the patient 03/25/2023 12:32 PM PDT documented as of this encounter Care Teams Open Winder Relationship Specialty Start Date End Date Shanda Law PA-C [address] [place] [address] PCP - General FAMILY MEDICINEISACC 01/31/24 documented as of this encounter
--- OUTSIDE RECORDS SUMMARY | 2025-08-16 10:21 | XMS_ITS | Clinical Summary ---
Author Organization [facility] Address [id number] [place] [id number] Care Team Providers Care Equipment Planner Name Role Phone Shanda Law Primary Care Provider [phone] Social History Tobacco Use Types Packs/Day Years [...] 2) 2017 Colorectal Cancer Screening: Colonoscopy 10/26/2022 HIV Screening 10/26/2022 Hepatitis C Screening 10/26/2022 Social Influencers of Health Screening 10/26/2022 Depression Screening 11/28/2024 COVID-19 Vaccine ( - 2023-2 5 season) 2025 Influenza Vaccine (#1) 2025 RSV Immunization Adult Patie nts (1 - 1-dose 75+ series) 2042 HIB [...] age to complete this topic Care Teams Equipment Planner Relationship Specialty Start Date End Date Shanda Law PA [address] [place] [address] PCP - General 07/06/24
--- OUTSIDE RECORDS SUMMARY | 2025-08-16 10:21 | XMS_ITS | Clinical Summary ---
Author Organization [facility] Address [address] [place] [address] Phone Care Team Providers Care Toddler Caregiver Name Role Phone Shanda Law PA-C Primary Care Provider Social History Tobacco Use Types Packs/Day Years Used Date Smoking Tobacco: Never Assessed Comments Unknown Sex and Gender Information Value Date Recorded Sex Assigned at Not on file Legal Sex Female 3:13 PM EDT Gender Identity Not on file Sexual Orientation Not on file Plan of Treatment Not on file Medical Devices Not on file Insurance C3 ACO C3 ACO C3 ACO C3 ACO C3 ACO [facility] C3 ACO Care Teams Toddler Caregiver Relationship Specialty Start Date End Date Shanda Law PA-C [address] [place] [address] PCP - General Physician Grocery Deliverer 03/19/25 Additional Source Comments The information contained in this document represents components of the legal health record. It is not the complete legal health record.[facility]
--- OUTSIDE RECORDS SUMMARY | 2025-08-16 10:21 | XMS_ITS | Clinical Summary ---
Author Organization [facility] Address [address] [place] [address] Care Team Providers Care Dimensional Inspector Name Role Phone Shanda Law PA-C Primary Care Provider [phone] Source Comments PLEASE NOTE, if this patient [...] Swelling High 12/27/2017 Medications miscellaneous medical supply miscIndications: Varicose veins of right leg with edema by miscellaneous route once daily Dx: Varicose Veins of right leg with edema, VICKI: 99, Supply: Compression Stockings (compression goal 15-20 mmHg) 2 Each 07/20/20 22 Active tiZANidine (ZANAFLEX) 4 mg tablet Take 4 mg by mouth 3 (three) times daily as needed for muscle spasms 05/14/20 24 Active blood-glucose meter monitoring kitIndications:N ew onset type 2 diabetes mellitus ([facility]) Use to test blood glucose twice daily. (Freestyle Lite) 1 Each 01/13/20 25 Active blood sugar diagnostic (BLOOD GLUCOSE TEST) stripsIndication s:New onset type 2 diabetes mellitus ([facility]) Use to test blood glucose twice daily. (Freestyle Lite) 100 Each 5 01/13/20 25 Active lancets 28 gaugeIndications :New onset type 2 diabetes mellitus ([facility]) Use to test blood glucose twice daily. (Freestyle Lite) 100 Each 5 01/13/20 25 Active alcohol swabsIndications :New onset type 2 diabetes mellitus ([facility]) Use to test blood glucose twice daily. 100 Each 5 01/13/20 25 Active hydrOXYzine HCL (ATARAX) 25 mg tablet TOME KAREN O DOS TABLETAS POR V A ORAL EVERY NIGHT AL ACOSTARSE CUANDO SEA NECESARIO 12/26/19 25 Active calcium carbonate-vitami n D3 600 mg-10 mcg (400 unit) tabletIndication s:Vitamin D deficiency Take 1 Tablet by mouth once daily. 180 Tablet 1 05/06/20 25 Active lisinopriL-hydro chlorothiazide 20-12.5 mg per tabletIndication s:Essential hypertension Take 1 Tablet by mouth once daily. 90 Tablet 1 05/06/20 25 Active cholecalciferol, vitamin D3, (VITAMIN D3) 25 mcg (1,000 unit) capsuleIndicatio ns:Vitamin D deficiency Take 1 Capsule by mouth once daily. 90 Capsule 1 05/06/20 25 Active empagliflozin (JARDIANCE) 10 mg tabIndications:N ew onset type 2 diabetes mellitus ([facility]) Take 1 Tablet by mouth every morning. 90 Tablet 1 07/05/20 25 Active sertraline (ZOLOFT) 50 mg tablet Take 50 mg by mouth once daily. Active sertraline (ZOLOFT) 25 mg tablet TOME KAREN TABLETA POR V A ORAL TODOS LOS D WITH FOOD 12/26/19 25 025 Discontin ued(Thera py completed /Not needed) gabapentin (NEURONTIN) 400 mg capsuleIndicatio ns:Multiple joint pain Take 1 Capsule by mouth nightly at bedtime. 90 Capsule 1 05/06/20 25 025 Discontin ued(Thera py completed /Not needed) Active Problems Problem Noted Date Diagnosed Date Mild major depression ([facility] V24) 07/31/2025 Fibromyalgia 07/31/2025 Nontoxic nodular goiter 09/21/2024 Severe obesity ([facility]) 07/05/2024 Primary osteoarthritis of both knees 04/04/2024 History of thyroid nodule 04/04/2024 Spondylosis, thoracic 10/17/2023 Adult BMI 40.0-44.9 kg/sq m ([facility]) 01/26 Vitamin D deficiency 02/09/2019 Prediabetes 01/10/2019 Essential hypertension 12/27/2017 Hypercholesteremia 12/27/2017 Colon cancer screening 12/27/2017 Breast cancer screening 12/27/2017 Overview (01/12/2018): 01/11/2018 [facility]- Mammogram Screening Digital No findings suspicious [...] complication, without long-term current use of insulin ([facility] 12/27/2017 01/10/2019 Encounters Date Type Department Care Team Description 07/31/2025 11:20 AM EDT Telemedicine Visit [address] [phone] Shanda Law PA-C 07/09/2025 3:40 PM EDT Office Visit [address] [address] Caren Rothman RHD 06/20/2025 8:20 AM EDT Telemedicine Visit [address] [phone] Shanda Law PA-C 06/20/2025 Results Follow-Up [address] [phone] Katharina Tirado DO 06/19/2025 3:40 PM EDT Office Visit [address] [address] Caren Rothman RHD 05/29/2025 3:40 PM EDT Office Visit [address] [phone] Katharina Tirado, DO Cooper, Katelyn from Last 3 Months Immunizations Immunization Administration Dates Next Due Flu, Preservative Free 12/12/2021,10/23/2018, Hep B, Adult/Adol (NGPOIOV-Z-IMDYU/RECOMBIVAX-ADULT) 01/04/2020,06/25/2019,05/23/2019 Influenza (FLUBLOK),recombinant,injectable,preservati ve Free 09/20/2024 Moderna COVID-19 [...] 1 981 - 2018 Smokeless Tobacco: Never Tobacco Cessation:Counseling Given: Not Answered Alcohol Use Standard Drinks/Week Comments No 0 (1 standard drink = 0.6 oz pur e alcohol) Social Connections Answer Date Recorded How often do you feel lonely or isolated from th ose around you? 1 01/07/2025 Financial Resource Strain Answer Date R ecorded Hard to pay for: Food 1 01/07/2025 Stress Answer Date Recorded Do you feel these kinds of stress these days? 1 01/07/2025 Physical Activity Answer Date Recorded Physical Activity 0 07/17/2019 Food Insecurity Answer Date Recorded Hard to pay for: Food 1 01/07/2025 Transportation Needs Answer Date Record ed Hard to pay for: Transportation 1 01/07/2025 Housing Stability Answer Date Recorded Hard to pay for: Rent/Mortgage payment 1 01/07/2025 Safety and Environment Answer Date [place] r[place] Safety 1 04/04/2024 Utilities Answer Date Recorded Hard to pay for: Utilities 1 01/07 Employment Answer Date Recorded Stress 0 03/25/2023 Comments No Sex and Gender Information Value Date Recorded Sex Assigned at Female 12/27/2017 11:05 AM PST Legal Sex Female 12:37 PM PST Gender Identity Female 12/27/2017 11:05 AM PST Sexual Orientation Straight 12/27/2017 11 :05 AM PST Last Filed Vital Signs Vital Sign Reading Time Taken Comments Blood Pressure 123/96 07/09/2025 4:47 PM EDT Pulse 80 07/09/2025 4:47 PM EDT Temperature 35.9 C (96.6 F) 02/12/2025 1:16 PM EDT Respiratory Rate 16 05/29/2025 3:52 PM EDT Oxygen Saturation 95% 05/29/2025 3:52 PM EDT Inhaled Oxygen Concentration - - Weight 106.1 kg (234 lb) 07/31/2025 11:02 AM EDT Height 162.6 cm (5' 4 ) 07/31/2025 11:02 AM EDT Body Mass Index 40.17 07/31/2025 11:02 AM EDT Plan of Treatment Upcoming Encounters Date Type Department Care Team (Late st Contact Info) Description 10/15/2025 3:00 PM EST Office Visit [facility] [phone] [place] [address] Caren Rothman, [facility] [address] [place] [address] Health Maintenance Due Date Last Done Comments HPV Screening 1967 Retinopathy Screening 1980 Imm-Pneumococcal 50+ (1 of 2 - PCV) 1986 CT Colonography 2012 Colonoscopy 2012 Colorectal Cancer Screening 2012 FIT/gFOBT 2012 Fecal DNA 2012 Flexible Sigmoidoscopy 2012 Lung Cancer Screening 01/28/2024 01/27/2023 , 01/27/2023, 01/26/2023 Dental Prophy 06/20/2025 12/19/2024, 02/0 06/2024, 04/05/2023, Additional history exists Annual Wellness (Adult): Indicated (All Coverage) 07/05/2025 07/05/2024, 10/12/2023, 07/19/2022, Additional history exists [id number] ( season) 2025 12/12/2021, 04/16/2021, 03/21/2021 Imm-Influenza (#1) 2025 09/20/2024, 0 12/12/2021, 10/23/2018, Additional history exists Depression Monitoring 08/06/2025 05/06/2025 , 01/07/2025, 08/27/2024, Additional history exists Breast Cancer Screening (Mammogram) 08/08/2025 08/08/2024, 08/05/2023, 08/05/2023, Additional history exists Hemoglobin A1c 10/11/2025 04/10/2025, 12/29, 07/27/2024, Additional history exists Dental BW 12/21/2025 12/19/2024, 02/06/2024, 04/05/2023, Additional history exists Dental Examination 12/21/2025 12/19/2024, 0 01/05/2024, 04/05/2023, Additional history exists Dental Perio Charting 12/21/2025 12/19/2024 , 01/05/2024, 05/11/2022 Urine Albumin Creatinine Rat io Screening 01/22/2026 01/22/2025, 01/02/2018 Diabetes Foot Exam 02/14/2026 02/14/2025 Lipid Screening 04/10/2026 04/10/2025, 12/29, 07/27/2024, Additional history exists Serum Creatinine 04/10/2026 04/10/2025, 10/2025, 07/27/2024, Additional history exists Anxiety Screening 05/06/2026 05/06/2025 Tobacco Screening 07/31/2026 07/31/2025 Cervical Cancer Screening 10/12/2026 Pap + HPV 10/12/2026 10/12/2023, 01/04/2020 Pap Smear 10/12/2026 10/12/2023, 02/05/2020, 01/04/2020, Additional history exists Imm-DTaP/Tdap/Td (2 - Td or Tdap) 02/09/2029 019 Dental FMX/Pano 12/21/2029 12/19/2024 HIV Screening Completed 02/09/2019 Hepatitis C Screening Completed 02/09/2019 Imm-Hepatitis B Completed 01/04/2020, 05/29, 05/23/2019 Imm-Zoster, Recombinant Completed 03/25/2023, 07/19 Alcohol and Drug Screen Completed 05/06/20, 01/07/2025, 08/27/2024, Additional history exists Cervical Ablation/Cold-Knife Conization Discontinued Cervical Cryotherapy Discontinued Colposcopy Discontinued Endometrial Biopsy Discontinued Excision/Leep Discontinued HPV Genotyping Discontinued Vaginal Pap Discontinued Vulvoscopy Discontinued Procedures Procedure Name Priority Date/Time Associated Diagnosis Comments LL PRDONTAL SCALING&ROOT PLANING 4/MORE TEETH-QUAD Routine 07/09/2025 3:40 PM EDT Periodontal disease UL PRDONTAL SCALING&ROOT PLANING 4/MORE TEETH-QUAD Routine 07/09/2025 3:40 PM EDT Periodontal disease LR PRDONTAL SCALING&ROOT PLANING 4/MORE TEETH-QUAD Routine 06/19/2025 3:40 PM EDT Periodontal disease UR PRDONTAL SCALING&ROOT PLANING 4/MORE TEETH-QUAD Routine 06/19/2025 3:40 PM EDT Periodontal disease TISSUE, SPECIMEN A REPORT [facility] 05/29/2025 4:16 PM EDT TISSUE PATHOLOGY REPORT [facility] 05/29/2025 4:16 PM EDT Postmenopausal bleeding COMPREHENSIVE METABOLIC PANEL Routine 04/10/2025 8:36 AM EDT Essential hypertension Hypercholesteremia Prediabetes LIPIDS W RFLX TO DIRECT LDL Routine 04/10/2025 8:36 AM EDT Essential hypertension Hypercholesteremia Prediabetes HGBA1C W/MPG Routine 04/10/2025 8:36 AM EDT Prediabetes MICROALBUMIN/CREATINI NE RATIO, URINE, RANDOM Routine 01/22/2025 4:25 PM EST New onset type 2 diabetes mellitus (HCC-CMS) COMP PERIODONTAL EVALUATION - NEW/EST PATIENT Routine 12/19/2024 3:00 PM EST Caries of enamel (incipient) Encounter for dental examination INTRAORAL - COMP SERIES OF RADIOGRAPHIC IMAGES Routine 12/19/2024 3:00 PM EST Caries of enamel (incipient) Encounter for dental examination PROPHYLAXIS - ADULT Routine 12/19/2024 3 :00 PM EST Caries of enamel (incipient) Encounter for dental examination PERIODIC ORAL EVALUATION ESTABLISHED PATIENT Routine 12/19/2024 3:00 PM EST Caries of enamel (incipient) Encounter for dental examination REFERRAL FOR MAMMOGRAM Routine 08/08/2024 3:00 AM [...] Recently Relevant to Health Maintenance Results * TISSUE, SPECIMEN A REPORT [facility] (05/29/2025 4:16 PM EDT) A SOURCE See Note YouTube Comment:Endometrium, biopsy: A GROSS DESCRIPTION See Note YouTube Comment: The container is labeled with patient's name and source EMB . Specimen is received in 10% neutral buffered formalin and consists of 2.9 x 1.9 x 0.3 cm of mucoid material. The specimen is filtered and submitted entirely in cassette A1. Gross exam(s) performed at: [employer] [address] [place] [phone] [employer] Crm Developer: MILTON ODONNELL MD PATHOLOGY DIAGNOSIS See Note YouTube Comment:Scant fragments of i nactive endometrium. 05/29/2025 4:16 PM EDT 05/30/2025 5:59 AM EDT Katharina Formisano DO LAB - PATHOLOGY AND CYTOLOGY A MBULATORY Final Result Performing Organization Address City/[facility]/ZIP Co de Phone Number [facility] [address] [address], [employer] [address] [place] [phone] * TISSUE PATHOLOGY REPORT Endometrial Biopsy [facility] (05/29/2025 4:16 PM EDT) CLINICAL INFORMATION See Note YouTube Comment: ICD-10: N95.0 Stenotic cervix PATHOLOGIST See Note YouTube Comment: Kaity Hollins M.D. Board Certified in Anatomic and Clinical Pathology [facility], Anatomic Pathology [address] [employer] [address] [place] [address] Pathologist Release Date/Time: 06/03/2025 09:55AM Biopsy Endometrial structure / Unknown 05/29/2025 4:16 PM EDT 05/30/2025 5:59 AM EDT Katharina Formisano DO LAB - PATHOLOGY AND CYTOLOGY A MBULATORY Final Result Performing Organization Address City/[facility]/ZIP Co de Phone Number [facility] [address] [address], [employer] [address] [place] [phone] * (ABNORMAL) HGBA1C W/MPG (04/10/2025 8:36 AM EDT) HEMOGLOBIN A1C 6.1(H) <5.7 % YouTube Comment: For someone without known diabetes, a hemoglobin A1c value between 5.7% and 6.4% is consistent with prediabetes and should be confirmed with a follow-up test. For someone with known diabetes, a value <7% indicates that their diabetes is well controlled. A1c targets should be individualized based on duration of diabetes, age, comorbid conditions, and other considerations. This assay result is consistent with an increased risk of diabetes. Currently, no consensus exists regarding use of hemoglobin A1c for diagnosis of diabetes for children. MEAN PLASMA GLUCOSE 140 mg/dL (calc) [employer] Blood Blood / Unknown 04/10/2025 8 :36 AM EDT 04/10/2025 8:37 AM EDT Narrative [facility] - 04/11/2025 6:53 AM EDT FASTING:YES Shanda Law PA-C LAB - BLOOD DRAW Edited Resu lt - Final [employer] [facility] [address] [address], [employer] [facility] [address] [place] [address] * (ABNORMAL) LIPIDS W RFLX TO DIRECT LDL (04/10/2025 8:36 AM EDT) CHOLESTEROL, TOTAL 179 <200 mg/dL [facility] HDL CHOLESTEROL 47(L) > OR = 50 mg/dL [facility] TRIGLYCERIDES 119 <150 mg/dL [facility] LDL-CHOLESTEROL 109(H) 99 mg/dL (calc) [facility] Comment: Reference range: <100 Desirable range <100 mg/dL for primary prevention; <70 mg/dL for patients with CHD or diabetic patients with > or = 2 CHD risk factors. LDL-C is now calculated using the Brendan-Aguilar calculation, which is a validated novel method providing better accuracy than the Friedewald equation in the estimation of LDL-C. Brendan OBRIEN et al. JOSUÉ. 2013;310(19): 4981-4599 (http://education.schoox.CareDox/faq/EUE109) CHOL/HDLC RATIO 3.8 <5.0 (calc) [facility] NON-HDL CHOLESTEROL 132(H) <130 mg/dL (calc) [facility] Comment: For patients with diabetes plus 1 major ASCVD risk factor, treating to a non-HDL-C goal of <100 mg/dL (LDL-C of <70 mg/dL) is considered a therapeutic option. Blood Blood / Unknown 04/10/2025 8 :36 AM EDT 04/10/2025 8:37 AM EDT Narrative [facility] - 04/11/2025 6:53 AM EDT FASTING:YES Shanda Law PA-C LAB - BLOOD DRAW Final Resul t [employer] [facility] [address] [address], [employer] [facility] [address] [place] [address] * (ABNORMAL) COMPREHENSIVE METABOLIC PANEL (04/10/2025 8:36 AM EDT) GLUCOSE 110(H) 65 - 99 mg/dL [facility] [facility] Comment: Fasting reference interval For someone without known diabetes, a glucose value between 100 and 125 mg/dL is consistent with prediabetes and should be confirmed with a follow-up test. UREA NITROGEN (BUN) 19 7 - 25 mg/dL [facility] CREATININE (blood) 0.73 0.50 - 1.03 mg/dL [facility] EGFR 96 > OR = 60 mL/min/1. 73m2 [facility] BUN/CREATININE RATIO SEE NOTE: [facility] [facility] Comment: Not Reported: BUN and Creatinine are within reference range. SODIUM 138 135 - 146 mmol/L [facility] POTASSIUM 4.4 3.5 - 5.3 mmol/L [facility] CHLORIDE 100 98 - 110 mmol/L [facility] CARBON DIOXIDE 29 20 - 32 mmol/L [facility] CALCIUM 10.1 8.6 - 10.4 mg/dL [facility] PROTEIN, TOTAL 7.6 6.1 - 8.1 g/dL [facility] ALBUMIN 4.5 3.6 - 5.1 g/dL [facility] GLOBULIN 3.1 1.9 - 3.7 g/dL (calc) [facility] ALBUMIN/GLOBULI N RATIO 1.5 1.0 - 2.5 (calc) [facility] BILIRUBIN, TOTAL 0.5 0.2 - 1.2 mg/dL [facility] ALKALINE PHOSPHATASE 62 37 - 153 U/L [facility] AST 12 10 - 35 U/L [facility] ALT 8 6 - 29 U/L [facility] Blood Blood / Unknown 04/10/2025 8 :36 AM EDT 04/10/2025 8:37 AM EDT Narrative [facility] - 04/11/2025 6:53 AM EDT FASTING:YES us Shanda Law PA-C LAB - BLOOD DRAW Final Resul t Performing Organization Address City/[facility]/ZIP Co de Phone Number [facility] [address] [address], [employer] [address] [address] * MICROALBUMIN/CREATININE RATIO, URINE, RANDOM (01/22/2025 4:25 PM EST) CREATININE, RANDOM URINE 83 20 - 275 mg/dL [facility] MICROALBUMIN 0.3 mg/dL [facility] Comment: Reference Range Not established MICROALBUMIN/CREA TININE RATIO, RANDOM URINE 4 <30 mg/g creat [facility] Comment: The ADA defines abnormalities in albumin excretion as follows: Albuminuria Category Result (mg/g creatinine) Normal to Mildly increased <30 Moderately increased 30-299 Severely increased > OR = 300 The ADA recommends that at least two of three specimens collected within a 3-6 month period be abnormal before considering a patient to be within a diagnostic category. Urine Urine specimen / Unknown 01/22/2025 4:25 PM EST 01/22/2025 4:26 PM EST Shanda Law PA-C LAB URINE AMBULATORY Final R esult Performing Organization Address City/[facility]/ZIP Co de Phone Number [facility] [address] [address], [employer] [address] [address] * REFERRAL FOR MAMMOGRAM SCREENING (08/08/2024 3:00 AM EDT) 08/08/2024 3:00 AM EDT Shanda Law PA-C IMG RFL MAMMO Final Result * THIN PREP IMAGE PAP + HPV RNA E6/E7 W/RFLX HPV 16, 18/45 (10/12/2023 1:22 PM EST) CLINICAL INFORMATION See Note [facility] Comment:Routine exam LMP See Note [facility] Comment:[id number] PREV. PAP [facility] PREV. BX See Note [facility] Comment:NONE GIVEN SOURCE See Note [facility] Comment:Cervix STATEMENT OF ADEQUACY See Note [facility] Comment: Satisfactory for evaluation. Endocervical/transformation zone component present. INTERPRETATION/RESU LT See Note [facility] Comment: Cytology Results: Negative for intraepithelial lesion or malignancy. COMMENT See Note [facility] Comment: This Pap test has been evaluated with computer assisted technology. RN ONCOLOGY RESEARCH See Note [facility] Comment: YP, CT(ASCP) CT screening location: [place] [address] COMMENT [facility] HPV MRNA E6/E7 Not Detected Not Detected YouTube Comment: Methodology: Statistical Financial Analyst-Mediated Amplification This assay detects E6/E7 viral messenger RNA (mRNA) from 14 high-risk HPV types (16,18,31,33,35,39,45,51,52,56,58,59,66,68). Cervical sources are required for HPV testing. If a vaginal source from a patient who has had a total hysterectomy with removal of cervix was submitted, please contact the testing laboratory for alternative testing options. For additional information, please refer to http://education.Fuisz Media/faq/EYK708h0 (This link if provided for information/ educational purposes only.) Swab Cervix uteri structure / Unknown 10/12/2023 1:22 PM EST 10/13/2023 8:41 AM EST Narrative [facility] - 10/14/2023 12:49 PM EST EXPLANATORY NOTE: [...] along with historic and current clinical information. Bárbara Yepez PA-C LAB - PATHOLOGY AND CYTOLOGY AMBULATORY Final Result [facility] [address] [address], [facility] [address] [place] [address] * Lung Cancer Screening Referral, Low Dose Chest CT Order (01/27/2023 3:00 AM EST) 01/27/2023 3:00 AM EST us Bárbara Yepez PA-C IMG CT Final Result * (ABNORMAL) HEPATITIS A,B,C PANEL (02/09/2019 10:32 AM EDT) Pathologist [facility] HEPATITIS B SURFACE ANTIBODY NEGATIVE NEGATIVE [facility] HEPATITIS B SURFACE ANTIGEN NEGATIVE NEGATIVE [facility] Comment: Over the counter supplements containing high doses of biotin may interfere with this assay. If interference is suspected, patients shoud be retested after refraining from biotin supplements for 72 hours. HEPATITIS C VIRUS DIAGNOSTIC NEGATIVE NEGATIVE [facility] HEPATITIS B CORE ANTIBODY NEGATIVE NEGATIVE [facility] HEPATITIS A ANTIBODY TOTAL POSITIVE(A) NEGATIVE [facility] Comment: Over the counter supplements containing high doses of biotin may interfere with this assay. If interference is suspected, patients shoud be retested after refraining from biotin supplements for 72 hours. Blood specimen (specimen) Blood / Unknown 02/09/2019 10:32 AM EDT 02/09/2019 10:36 AM EDT Narrative [facility] - 02/09/2019 12:38 PM EDT [employer], a member of [address] [address] Process Steward - Anita Keating MD PT ID [id number] ORD# [id number] Steffi HOBSON LAB - BLOOD DRAW Edited Result - Final [facility] [address] [address], * HIV-1 & HIV-2 ANTIBODIES (02/09/2019 10:32 AM EDT) HIV 1 AND 2 ANTIBODY SCREEN NEGATIVE NEGATIVE [facility] Comment: This assay is a 4th generation assay allowing for earlier detection of HIV infection by detecting the presence of the HIV-1 p24 antigen as well as the traditional antibodies to HIV type 1 (including group O) and type 2. Use of a 4th generation assay is the current CDC recommendation for HIV screening. Blood specimen (specimen) Blood / Unknown 02/09/2019 10:32 AM EDT 02/09/2019 10:36 AM EDT [facility] - 02/09/2019 1:06 PM EDT [employer] [address] Process Steward - Anita Keating MD PT ID [id number] ORD# [id number] Steffi Lobo DESIZING PAD OPERATOR LAB - BLOOD DRAW Final Result [address] [address], from Last 3 Months or Most Recently Relevant to Health Maintenance Insurance [place] [address] [employer] Care Teams Dimensional Inspector Relationship Specialty Start Date End Date Shanda Law PA-C [address] [place] [address] PCP - General FAMILY MEDICINE PA 01/31/24
== END 2025-08-16 11:09 | disposition home or self-care (01) ==
LOC: HO.HOS 09:45
PROVIDERS: PCP Physician Assistant Medical; Visit Provider Physical Medicine & Rehabilitation
DX: M47.812 Spondylosis without myelopathy or radiculopathy, cervical region (principal); M25.511 Pain in right shoulder; M25.512 Pain in left shoulder; G89.29 Other chronic pain; M25.532 Pain in left wrist; M25.521 Pain in right elbow; M25.522 Pain in left elbow; M79.7 Fibromyalgia
CPT/HCPCS: 99213

== ENCOUNTER → 2025-08-16 09:45 | Outpatient (BNVA) | payer MEDICAID, SELFPAY | PROVIDERS: PCP Physician Assistant Medical; Visit Provider Physical Medicine & Rehabilitation | DX: M19.012 Primary osteoarthritis, left shoulder (principal); M47.812 Spondylosis without myelopathy or radiculopathy, cervical region; M25.511 Pain in right shoulder; M25.512 Pain in left shoulder; M25.532 Pain in left wrist; M25.521 Pain in right elbow; M25.522 Pain in left elbow; M79.7 Fibromyalgia | CPT/HCPCS: 99212 ==

== ENCOUNTER 2025-09-26 19:35 | Outpatient (REF) | payer MEDICAID, SELFPAY ==
--- NOTE | ~2025-09-26 | MR_ITS ---
CLINICAL HISTORY: M54.12 - Radiculopathy, cervical region --- Additional Notes or Special Instructions: evaluate for disc herniation or spinal stenosis MR cervical spine without intravenous contrast Comparison: None provided Findings: Mild reversal of the cervical lordosis. No significant change in vertebral heights or vertebral alignments. No definite abnormal signal of the cervical spinal cord accounting for motion and phase artifacts. Mild osteoarthritis of the imaged craniocervical junction with mild juxta-articular edema. No drainable paraspinal fluid collection. Prevertebral soft tissue nodularity is nonspecific and likely arises from the right lobe of the thyroid measuring greater than 2.5 cm. Lymphadenopathy is not excluded in the partially imaged prevertebral soft tissues. C2-C3: Bilateral facet arthropathy. No spinal stenosis. C3-C4: Disc osteophyte complex and bilateral facet arthropathy. No spinal stenosis. C4-C5: Disc osteophyte complex with near ventral cord abutment and mild-minimal spinal canal stenosis. Bilateral facet arthropathy. No significant foraminal narrowing. C5-C6: Disc osteophyte complex and bilateral facet arthropathy with mild-minimal spinal canal stenosis. No significant foraminal narrowing. C6-C7: Disc osteophyte complex and bilateral facet arthropathy. Mild spinal canal stenosis. Moderate right and mild/minimal left foraminal narrowing. C7-T1: Small disc osteophyte complex and bilateral facet arthropathy. Mild spinal canal stenosis. Mild-moderate right foraminal narrowing. IMPRESSION: 1. Multifocal foraminal narrowing including moderate on the right at C6-C7. 2. Additional findings of spinal stenosis or mild, with mild multifocal foraminal narrowing. 3. Multifocal facet arthropathy with reversal of the cervical lordosis. 4. Abnormal soft tissue signal and/or nodularity of the imaged prevertebral soft tissues. Recommend CT of the neck soft tissues with intravenous contrast, if not already achieved. This document has been electronically signed by: Mitch Pedersen MD on 09/26/2025 21:01:11
--- OUTSIDE RECORDS SUMMARY | 2025-09-26 19:41 | XMS_ITS | Encounter Summary ---
Author Organization [employer] [facility] Address [address] [place] [address] Care Team Providers Care Rattle Leak And Squeak Repairer Name Role Phone Unavailable Primary Care Provider [...]
--- OUTSIDE RECORDS SUMMARY | 2025-09-26 19:41 | XMS_ITS | Clinical Summary ---
Author Organization [email or web address] Address [address] [place] [address] Phone Care Team Providers Care Care Program Resident Name Role Phone Shanda Law Primary Care Provider [phone] Social History Tobacco Use Types Packs/Day Years [...] ACO C3 ACO C3 ACO C3 ACO [facility] C3 ACO Care Teams Care Program Resident Relationship Specialty Start Date End Date Shanda Law PA [address] [place] [address] PCP - General Physician Industrial Economics Professor 03/19/25 Additional Source Comments The information contained in this document represents components of the legal health record. It is not the complete legal health record.[facility]
--- OUTSIDE RECORDS SUMMARY | 2025-09-26 19:41 | XMS_ITS | Clinical Summary ---
Author Organization [employer] Address [address] [facility] [address] [place] [address] Care Team Providers Care Shipping/Receiving Manager Name Role Phone Unavailable Primary Care Provider [...] of 1 - PCV) 2017 COVID-19 Vaccine ( - season) 2025 12/12/2021, 04/16/2021, 03/21/2021 Influenza Vaccine (#1) 2025 4, 12/12/2021, 10/23/2018, Additional history exists DTaP/Tdap/Td Vaccines [...]
--- OUTSIDE RECORDS SUMMARY | 2025-09-26 19:41 | XMS_ITS | Clinical Summary ---
Author Organization [facility] Address [address] [place] [address] Care Team Providers Care Factory Manager Name Role Phone Shanda Law Primary Care Provider [phone] Social History Tobacco Use Types Packs/Day Years [...] Last Done Comments Breast Cancer Screening 1967 Colorectal Cancer Screening: Colonoscopy 1967 DTaP,Tdap,and Td Vaccines (1 - Tdap) 1986 Hepatitis B Vaccines (1 of 3 - 19+ 3-dose series) 1986 Cervical Cancer Screening: P ap Smear 1988 Pneumococcal Vaccine: 50+ Ye ars (1 of 1 - PCV) 2017 Zoster Vaccines (1 of 2) 2017 HIV Screening 10/26/2022 Hepatitis C Screening 10/26/2022 Social Influencers of Health Screening 10/26/2022 Depression Screening 11/28/2024 COVID-19 Vaccine (1 - 2023-2 5 season) 2025 Influenza Vaccine [...] age to complete this topic Care Teams Factory Manager Relationship Specialty Start Date End Date Shanda Law PA [address] [place] [address] PCP - General 07/06/24
== END 2025-09-26 19:36 | disposition home or self-care (01) ==
LOC: HO.MRI 19:35
PROVIDERS: PCP Physician Assistant Medical; Visit Provider Physical Medicine & Rehabilitation
DX: M54.12 Radiculopathy, cervical region (principal); M47.812 Spondylosis without myelopathy or radiculopathy, cervical region
CPT/HCPCS: 72141

== ENCOUNTER → 2025-09-26 19:51 | Outpatient (BNV) | payer MEDICAID, SELFPAY | PROVIDERS: PCP Physician Assistant Medical; Visit Provider Radiology Neuroradiology | DX: M54.12 Radiculopathy, cervical region (principal) | CPT/HCPCS: 72141 ==

== ENCOUNTER 2025-09-27 11:24 | Outpatient (REF) | payer MEDICAID, SELFPAY ==
--- OUTSIDE RECORDS SUMMARY | 2025-09-27 13:44 | XMS_ITS | Clinical Summary ---
Author Organization [facility] Address [address] [place] [address] Care Team Providers Care Congressional [place] Aide Name Role Phone Shanda Law PA-C Primary Care Provider [phone] Source Comments PLEASE NOTE, if this patient [...] goal 15-20 mmHg) 2 Each 022 Active tiZANidine (ZANAFLEX) 4 mg tablet Take 4 mg by mouth 3 (three) times daily as needed for muscle spasms 024 Active blood-glucose meter monitoring kitIndications: New onset type 2 diabetes mellitus Use to test blood glucose twice daily. (Freestyle Lite) 1 Each 025 Active blood sugar diagnostic (BLOOD GLUCOSE TEST) stripsIndicatio ns:New onset type 2 diabetes mellitus Use to test blood glucose twice daily. (Freestyle Lite) 100 Each 5 025 Active lancets 28 gaugeIndication s:New onset type 2 diabetes mellitus Use to test blood glucose twice daily. (Freestyle Lite) 100 Each 5 025 Active alcohol swabsIndication s:New onset type 2 diabetes mellitus Use to test blood glucose twice daily. 100 Each 5 025 Active hydrOXYzine HCL (ATARAX) 25 mg tablet TOME KAREN O DOS TABLETAS POR V A ORAL EVERY NIGHT AL ACOSTARSE CUANDO SEA NECESARIO 025 Active lisinopriL-hydr ochlorothiazide 20-12.5 mg per tabletIndicatio ns:Essential hypertension Take 1 Tablet by mouth once daily. 90 Tablet 1 025 Active cholecalciferol , vitamin D3, (VITAMIN D3) 25 mcg (1,000 unit) capsuleIndicati ons:Vitamin D deficiency Take 1 Capsule by mouth once daily. 90 Capsule 1 025 Active empagliflozin (JARDIANCE) 10 mg tabIndications: New onset type 2 diabetes mellitus Take 1 Tablet by mouth every morning. 90 Tablet 1 025 Active sertraline (ZOLOFT) 50 mg tablet Take 50 mg by mouth once daily. Active calcium carbonate-vitam in D3 600 mg-10 mcg (400 unit) tabletIndicatio ns:Vitamin D deficiency TOME DOS TABLETAS POR VIA ORAL [place] 180 Tablet 1 025 Active calcium carbonate-vitam in D3 600 mg-10 mcg (400 unit) tabletIndicatio ns:Vitamin D deficiency Take 1 Tablet by mouth once daily. 180 Tablet 1 025 2024 Discontinued Active Problems Problem Noted Date Diagnosed Date Mild major depression 07/31/2025 Fibromyalgia 07/31/2025 Nontoxic nodular goiter 09/21/2024 Severe obesity 07/05/2024 Primary osteoarthritis of both knees 04/04/2024 History of thyroid nodule 04/04/2024 Spondylosis, thoracic 10/17/2023 Adult BMI 40.0-44.9 kg/sq m 02/09/2019 Vitamin D deficiency 02/09/2019 Prediabetes 01/10/2019 Essential hypertension 12/27/2017 Hypercholesteremia 12/27/2017 Colon cancer screening 12/27/2017 Breast cancer screening 12/27/2017 Overview (01/12/2018): 01/11/2018 [facility]- Mammogram Screening Digital No findings [...] complication, without long-term current use of insulin ([facility]) 12/27/2017 01/10/2019 Encounters Date Type Department Care Team Description 07/31/2025 11:20 AM EDT Telemedicine Visit [address] [phone] Shanda Law PA-C 07/09/2025 3:40 PM EDT Office Visit [address] [phone] Caren Rothman RHD from Last 3 Months Immunizations Immunization Administration Dates Next Due Flu, Preservative Free 12/12/2021,10/23/2018, Hep B, Adult/Adol ([id number]-QEKEA/RECOMBIVAX-ADULT) 01/04/2020,06/25/2019,05/23/2019 Influenza (FLUBLOK),recombinant,injectable,preservati ve Free 09/20/2024 Moderna [...] Description 10/15/2025 3:00 PM EST Office Visit [facility] [address] [place] [address] Caren Rothman RHD [address] [place] [address] 10/31/2025 3:00 PM EST Office Visit [facility] [address] [place] [address] Shanda Law PA-C [address] [place] [address] Health Maintenance Due Date Last Done Comments HPV Screening (self-collect) 1967 HPV Screening 1967 Retinopathy Screening 1980 Imm-Pneumococcal 50+ (1 of 2 - PCV) 1986 CT Colonography 2012 Colonoscopy 2012 Colorectal Cancer Screening 2012 FIT/gFOBT 2012 Fecal DNA 2012 Flexible Sigmoidoscopy 2012 Imm-RSV (adult) (1 - Risk 50 -74 years 1-dose series) 2017 Lung Cancer Screening 01/28/2024 01/27/2023 , 01/27/2023, 01/26/2023 Dental Prophy 06/20/2025 12/19/2024, 02/0 06/2024, 04/05/2023, Additional history exists Annual Wellness (Adult): Indicated (All Coverage) 07/05/2025 07/05/2024, 10/12/2023, 07/19/2022, Additional history exists [id number] ( - season) 2025 12/12/2021, 04/16/2021, 03/21/2021 Imm-Influenza (#1) 2025 09/20/2024, 0 12/12/2021, 10/23/2018, Additional history exists Depression Monitoring 08/06/2025 05/06/2025 , 01/07/2025, 08/27/2024, Additional history exists Hemoglobin A1c 10/11/2025 04/10/2025, [...] Screening 05/06/2026 05/06/2025 Tobacco Screening 07/31/2026 07/31/2025 Breast Cancer Screening (Mammogram) 08/16/2026 08/16/2025, 08/08/2024, 08/05/2023, Additional history exists Cervical Cancer Screening 10/12/2026 Pap + HPV 10/12/2026 10/12/2023, 01/04/2020 Pap Smear 10/12/2026 10/12/2023, 0205/2020, 01/04/2020, Additional history exists Imm-DTaP/Tdap/Td (2 - Td or Tdap) 02/09/2029 019 Dental FMX/Pano 12/21/2029 12/19/2024 HIV Screening Completed 02/09/2019 Hepatitis C Screening Completed 02/09/2019 Imm-Hepatitis B Completed 01/04/2020, 05/29, 05/23/2019 Imm-Zoster, Recombinant Completed 03/25/2023, 07/19 Alcohol and Drug Screen Completed 05/06/20, 01/07/2025, 08/27/2024, Additional history exists Cervical Ablation/Cold-Knife Conization Discontinued Cervical Cryotherapy Discontinued Colposcopy Discontinued Excision/Leep Discontinued HPV Genotyping Discontinued Vaginal Pap Discontinued Vulvoscopy Discontinued Procedures Procedure Name Priority Date/Time Associated Diagnosis Comments REFERRAL SCANNED DOCUMENT 08/16/2025 3:00 AM EDT HISTORIC MAMMOGRAM 08/16/2025 3: 00 AM EDT LL PRDONTAL SCALING&ROOT PLANING 4/MORE TEETH-QUAD Routine 07/09/2025 3:40 PM EDT Periodontal disease UL PRDONTAL SCALING&ROOT PLANING 4/MORE TEETH-QUAD Routine 07/09/2025 3:40 PM EDT Periodontal disease REFERRAL TO RHEUMATOLOGY Routine 06/28/2025 3:00 AM EDT Multiple joint pain COMPREHENSIVE METABOLIC PANEL Routine 04/10/2025 8:36 AM [...] of enamel (incipient) Encounter for dental examination THIN PREP IMAGE PAP + HPV RNA [...] Recently Relevant to Health Maintenance Results * HISTORIC MAMMOGRAM (08/16/2025 3:00 AM EDT) 08/16/2025 3:00 AM EDT us Motility Countr Law PA-C IMG MAMMO Final Result * REFERRAL SCANNED DOCUMENT (08/16/2025 3:00 AM EDT) 08/16/2025 3:00 AM EDT us Vivonetimar Law PA-C SCAN REFERRAL Final Result * REFERRAL TO RHEUMATOLOGY (06/28/2025 3:00 AM EDT) 06/28/2025 3:00 AM EDT us Vivonetimar Law PA-C REFERRAL Final Result * (ABNORMAL) HGBA1C W/MPG (04/10/2025 8:36 AM EDT) HEMOGLOBIN A1C 6.1(H) <5.7 % [facility] Comment: For someone without known diabetes, a [...] children. MEAN PLASMA GLUCOSE 140 mg/dL (calc) [facility] Blood Blood / Unknown 04/10/2025 8 :36 AM EDT 04/10/2025 8:37 AM EDT Narrative [facility] - 04/11/2025 6:53 AM EDT FASTING:YES Shanda Law PA-C LAB - BLOOD DRAW Edited Resu lt - Final Performing Organization Address [facility]/ZIP Co de Phone Number [facility] [address] [address], [facility] [address] [address] * (ABNORMAL) LIPIDS W RFLX TO DIRECT LDL (04/10/2025 8:36 AM EDT) [facility] Signature CHOLESTEROL, TOTAL 179 <200 mg/dL [facility] HDL CHOLESTEROL 47(L) > OR = 50 mg/dL [facility] TRIGLYCERIDES 119 <150 mg/dL [facility] LDL-CHOLESTEROL 109(H) 99 mg/dL (calc) [facility] Comment: Reference range: <100 Desirable range <100 mg/dL for primary prevention; <70 mg/dL for patients with CHD or diabetic patients with > or = 2 CHD risk factors. LDL-C is now calculated using the Brendan-Lauren calculation, which is a validated novel method providing better accuracy than the Friedewald equation in the estimation of LDL-C. Brendan OBRIEN et al. JOSUÉ. 2013;310(19): 4758-8195 (http://education.Beacon Reader/faq/JUE455) CHOL/HDLC RATIO 3.8 <5.0 (calc) [facility] NON-HDL CHOLESTEROL 132(H) <130 mg/dL (calc) [facility] Comment: For patients with diabetes plus 1 major ASCVD risk factor, treating to a non-HDL-C goal of <100 mg/dL (LDL-C of <70 mg/dL) is considered a therapeutic option. Blood Blood / Unknown 04/10/2025 8 :36 AM EDT 04/10/2025 8:37 AM EDT Narrative [facility] - 04/11/2025 6:53 AM EDT FASTING:YES us Shanda Law PA-C LAB - BLOOD DRAW Final Resul t Performing Organization Address [facility]/ZIP Co de Phone Number [facility] [address] [address], [employer] [address] [place] [address] * (ABNORMAL) COMPREHENSIVE METABOLIC PANEL (04/10/2025 8:36 AM EDT) GLUCOSE 110(H) 65 - 99 mg/dL [facility] Comment: Fasting reference interval For someone without known diabetes, a glucose value between 100 and 125 mg/dL is consistent with prediabetes and should be confirmed with a follow-up test. UREA NITROGEN (BUN) 19 7 - 25 mg/dL [facility] CREATININE (blood) 0.73 0.50 - 1.03 mg/dL [facility] EGFR 96 > OR = 60 mL/min/1. 73m2 [facility] BUN/CREATININE RATIO SEE NOTE: [facility] Comment: Not Reported: BUN and Creatinine are within reference range. SODIUM 138 135 - 146 mmol/L [facility] POTASSIUM 4.4 3.5 - 5.3 mmol/L [facility] CHLORIDE 100 98 - 110 mmol/L [facility] CARBON DIOXIDE 29 20 - 32 mmol/L [facility] CALCIUM 10.1 8.6 - 10.4 mg/dL [facility] PROTEIN, TOTAL 7.6 6.1 - 8.1 g/dL [facility] ALBUMIN 4.5 3.6 - 5.1 g/dL [facility] GLOBULIN 3.1 1.9 - 3.7 g/dL (calc) [facility] ALBUMIN/GLOBULI N RATIO 1.5 1.0 - 2.5 (calc) [facility] BILIRUBIN, TOTAL 0.5 0.2 - 1.2 mg/dL [facility] ALKALINE PHOSPHATASE 62 37 - 153 U/L [facility] AST 12 10 - 35 U/L [facility] ALT 8 6 - 29 U/L [facility] Blood Blood / Unknown 04/10/2025 8 :36 AM EDT 04/10/2025 8:37 AM EDT Narrative [facility] - 04/11/2025 6:53 AM EDT FASTING:YES us Shanda Law PA-C LAB - BLOOD DRAW Final Resul t [facility] [employer] [address] [address], [employer] [facility] [address] [place] [address] * MICROALBUMIN/CREATININE RATIO, URINE, RANDOM (01/22/2025 4:25 PM EST) CREATININE, RANDOM URINE 83 20 - 275 mg/dL [facility] MICROALBUMIN 0.3 mg/dL [employer] Comment: Reference Range Not established MICROALBUMIN/CREA TININE RATIO, RANDOM URINE 4 <30 mg/g creat [facility] Comment: The ADA defines abnormalities in albumin [...] PA-C LAB URINE AMBULATORY Final R esult [facility] [address] [address], [employer] [address] [place] [phone] * THIN PREP IMAGE PAP + HPV RNA E6/E7 W/RFLX HPV 16, 18/45 (10/12/2023 1:22 PM EST) Pathologist [facility] CLINICAL INFORMATION See Note [employer] Comment:Routine exam LMP See Note [employer] [facility] Comment:[id number] PREV. PAP [facility] PREV. BX See Note [facility] Comment:NONE GIVEN SOURCE See Note [facility] Comment:Cervix STATEMENT OF ADEQUACY See Note [facility] Comment: Satisfactory for evaluation. Endocervical/transformation zone component present. INTERPRETATION/RESU LT See Note [facility] Comment: Cytology Results: Negative for intraepithelial lesion or malignancy. COMMENT See Note [facility] Comment: This Pap test has been evaluated with computer assisted technology. LAWN SPECIALIST See Note [employer] Comment: YP, CT(ASCP) CT screening location: [address] [address] COMMENT [facility] HPV MRNA E6/E7 Not Detected Not Detected [facility] Comment: Methodology: Hvac Service Manager-Mediated Amplification This assay detects E6/E7 viral messenger RNA (mRNA) from 14 high-risk HPV types (16,18,31,33,35,39,45,51,52,56,58,59,66,68). Cervical sources are required for HPV testing. If a vaginal source from a patient who has had a total hysterectomy with removal of cervix was submitted, please contact the testing laboratory for alternative testing options. For additional information, please refer to http://education.[employer]/faq/YCI390d7 (This link if provided for information/ educational purposes only.) Swab Cervix uteri structure / Unknown 10/12/2023 1:22 PM EST 10/13/2023 8:41 AM EST Narrative [facility] - 10/14/2023 12:49 PM EST EXPLANATORY NOTE: [...] information. us Bárbara Yepez PA-C LAB - PATHOLOGY AND CYTOLOGY AMBULATORY Final Result [facility] [address] [address], [facility] [address] [address] * Lung Cancer Screening Referral, Low Dose Chest CT Order (01/27/2023 3:00 AM EST) 01/27/2023 3:00 AM EST us Bárbara Yepez PA-C IMG CT Final Result * (ABNORMAL) HEPATITIS A,B,C PANEL (02/09/2019 10:32 AM EDT) HEPATITIS B SURFACE ANTIBODY NEGATIVE NEGATIVE [facility] HEPATITIS B SURFACE ANTIGEN NEGATIVE NEGATIVE [facility] Comment: Over the counter supplements containing high doses of biotin may interfere with this assay. If interference is suspected, patients shoud be retested after refraining from biotin supplements for 72 hours. HEPATITIS C VIRUS DIAGNOSTIC NEGATIVE NEGATIVE [facility] HEPATITIS B CORE ANTIBODY NEGATIVE NEGATIVE [facility] HEPATITIS A ANTIBODY TOTAL POSITIVE(A) NEGATIVE [facility] Comment: Over the counter supplements containing high doses of biotin may interfere with this assay. If interference is suspected, patients shoud be retested after refraining from biotin supplements for 72 hours. Blood specimen (specimen) Blood / Unknown 02/09/2019 10:32 AM EDT 02/09/2019 10:36 AM EDT [facility] - 02/09/2019 12:38 PM EDT [employer] [address] Meat Grader - Anita Keating MD PT ID [id number] ORD# [id number] Steffi Lobo [facility] LAB - BLOOD DRAW Edited Result - Final Performing Organization Address City/State/[facility] [place] [address], * HIV-1 & HIV-2 ANTIBODIES (02/09/2019 10:32 AM EDT) HIV 1 AND 2 ANTIBODY SCREEN NEGATIVE NEGATIVE [facility] Comment: This assay is a 4th generation [...] AM EDT 02/09/2019 10:36 AM EDT Narrative [facility] - 02/09/2019 1:06 PM EDT [facility], a member of [facility] [address] [place] [address] Meat Grader - Anita Keating MD PT ID [id number] ORD# [id number] Steffi Lobo COLLECTION TEAM LEAD LAB - BLOOD DRAW Final Result [facility] [address] [place] [address], [place] [phone] from Last 3 Months or Most Recently Relevant to Health Maintenance Insurance [place] [address] [place] [id number] Care Teams [place] Aide Relationship Specialty Start Date End Date Shanda Law PA-C [address] [place] [address] PCP - General FAMILY MEDICINEISACC 01/31/24
--- OUTSIDE RECORDS SUMMARY | 2025-09-27 13:45 | XMS_ITS | Encounter Summary ---
Author Organization [facility] Address [address] [place] [address] Care Team Providers Care Maintenance Worker Swimming Pool Name Role Phone Shanda Law PA-C Primary Care Provider [phone] Encounter Details Date Type Department Care Team (Late st Contact Info) Description 11/23/2023 Interim Notes [facility] [address] [place] [phone] Shy Correia [place] [address] [place] [address] Social History Tobacco Use Types Packs/Day Years [...] Description 10/15/2025 3:00 PM EST Office Visit [facility] [address] [place] [phone] Caren Rothman RHD [address] [place] [address] 10/31/2025 3:00 PM EST Office Visit [facility] [address] [place] [phone] Shanda Law PA-C [address] [place] [address] documented as of this encounter Visit Diagnoses Not on filedocumented in this encounter Additional Health Concerns Assessment Noted Time PHQ-9 Depression Total Score: 0 11/23/20 3:47 PM PST A Depression follow-up plan has been documented for the patient 03/25/2023 12:32 PM PDT documented as of this encounter Care Teams Maintenance Worker Swimming Pool Relationship Specialty Start Date End Date Shanda Law PA-C [address] [place] [address] PCP - General FAMILY MEDICINEISACC 01/31/24 documented as of this encounter
[2025-09-27 14:16] LABS: Anion Gap 12 (12-20); Blood Urea Nitrogen 16 mg/dL (9-16); Calcium 9.4 mg/dL (8.4-10.2); Carbon Dioxide 30 mmol/L (22-29); Chloride 104 mmol/L (96-108); Estimated Glomerular Filt Rate > 60; Potassium 3.6 mmol/L (3.3-5.1); Sodium 142 mmol/L (135-145)
== END 2025-09-27 11:25 | disposition home or self-care (01) ==
LOC: HO.LAB 11:24
PROVIDERS: PCP Physician Assistant Medical; Visit Provider Physical Medicine & Rehabilitation
DX: M79.7 Fibromyalgia (principal); M47.812 Spondylosis without myelopathy or radiculopathy, cervical region
CPT/HCPCS: 36415; 80048; 99212

== ENCOUNTER 2025-09-27 11:24 | Outpatient (AMB) | payer MEDICAID, SELFPAY ==
--- NOTE | 2025-09-27 11:45 | MHC.OFFVIS ---
Vital Signs 09/27/25 11:48 Height 5 ft 4 in Weight 250 lb BMI 42.9 Intake Visit Reasons: OV- Left Shoulder OA MRI follow up Intake Note: Amira is a 59 year old female right hand dominant who presents today for a follow up of her left shoulder OA and MRI review,09/26/2025. Patient states that since last visit she has no changes to report. Gluten Settling Tender Required: Yes Gluten Settling Tender Services: Gluten Settling Tender Offered & Declined Gluten Settling Tender Name: Allergies shrimp Adverse Reaction (Intermediate, Verified 08/16/25 10:12) Swelling HPI Comments Details: Chronic diffuse pain, since 2020 after COVID vaccine. Patient received left shoulder injection 02/07/2025. She did not think it helped much. Left shoulder x-rays showed mild degenerative changes on AC joint. STEPHON and RF both negative. EMG was done by me 01/04/2025 which was normal bilateral upper extremity. She did go to PT from Dec-February 2025 mainly for left shoulder. Then reported both shoulder pain. Right shoulder xray did show minimal arthritis, mostly on AC joint. Bilateral wrist xrays showed enthesopathy both medial and lateral areas. She does have elbow pain, but she maintains that whole arm is affected. Hand xrays unremarkable. She reports that right hand is difficult to grasp due to pain. Cervical xrays showed spondylosis. She does report posterolateral pain, together with the shoulder pain. She did see Dr. Franklin of [facility] who thought this was more fibromyalgia. MRI shows very minimal stenosis with facet arthritis, most notable C6-7. She was given gabapentin by Dr. Franklin but she stopped due to side effects of swelling. Psychiatrist prescribed more medications for her recently but is not aware of name. [facility] Medical History (Updated 08/16/25 @ 11:20 by Luz Israel MD) Bilateral elbow joint pain Shoulder pain, bilateral Numbness in both hands Social History Current occupational status: unemployed and disabled Current occupation: right hand Physical Exam Vital Signs: BMI result Body Mass Index 42.9 Constitutional: Patient appears to be in no acute distress, well nourished and well developed. Neurological: Neurologic examination of the upper and lower extremities was nonfocal with intact sensation, muscle stretch reflexes and without focal motor deficits . Gait is non-antalgic without loss of balance. Results Reviewed Results Reviewed: Ordering Physician: Luz Cedeno Date of Service: 09/26/25 Procedure(s): MR cervical spine wo con Accession Number(s): [id number] cc: Shanda Law PA-C; Luz Cedeno~ Reason for Exam: M54.12 - Radiculopathy, cervical region CLINICAL HISTORY: M54.12 - Radiculopathy, cervical region --- Additional Notes or Special Instructions: evaluate for disc herniation or spinal stenosis MR cervical spine without intravenous contrast Comparison: None provided Findings: Mild reversal of the cervical lordosis. No significant change in vertebral heights or vertebral alignments. No definite abnormal signal of the cervical spinal cord accounting for motion and phase artifacts. Mild osteoarthritis of the imaged craniocervical junction with mild juxta-articular edema. No drainable paraspinal fluid collection. Prevertebral soft tissue nodularity is nonspecific and likely arises from the right lobe of the thyroid measuring greater than 2.5 cm. Lymphadenopathy is not excluded in the partially imaged prevertebral soft tissues. C2-C3: Bilateral facet arthropathy. No spinal stenosis. C3-C4: Disc osteophyte complex and bilateral facet arthropathy. No spinal stenosis. C4-C5: Disc osteophyte complex with near ventral cord abutment and mild-minimal spinal canal stenosis. Bilateral facet arthropathy. No significant foraminal narrowing. C5-C6: Disc osteophyte complex and bilateral facet arthropathy with mild-minimal spinal canal stenosis. No significant foraminal narrowing. C6-C7: Disc osteophyte complex and bilateral facet arthropathy. Mild spinal canal stenosis. Moderate right and mild/minimal left foraminal narrowing. C7-T1: Small disc osteophyte complex and bilateral facet arthropathy. Mild spinal canal stenosis. Mild-moderate right foraminal narrowing. IMPRESSION: 1. Multifocal foraminal narrowing including moderate on the right at C6-C7. 2. Additional findings of spinal stenosis or mild, with mild multifocal foraminal narrowing. 3. Multifocal facet arthropathy with reversal of the cervical lordosis. 4. Abnormal soft tissue signal and/or nodularity of the imaged prevertebral soft tissues. Recommend CT of the neck soft tissues with intravenous contrast, if not already achieved. This document has been electronically signed by: Mitch Pedersen MD on 09/26/2025 21:01:11 Assessment & Plan Assessment & Plan (1) Fibromyalgia: Code(s): M79.7 - Fibromyalgia Category: Medical Plan Reviewed MRI results with patient. Only minimal stenosis seen C6-C7. As for incidental findings on MRI, CT scan with IV contrast ordered, as well as BMP. Patient says she has tolerated contrast in the past without allergic reaction. Diagnosis of fibromyalgia, confirmed by rheumatology. She did not tolerate gabapentin due to side effects. Defer to PCP for further medication. She continues to complain of right MCP joint pain. Previous EMG and x-rays were unremarkable. We will refer to hand surgery further eval and treatment. Assessment and plan discussed with patient, and patient was agreeable. All questions were answered thoroughly. Luz Israel MD, SETH Board Certified, [place] Board of Physical Medicine and Rehabilitation (ABPMR) Board Certified, [place] Board of Electrodiagnostic Medicine (ABEM) Coding Level of Care Code Est Pt Level 4 (05626) Diagnoses Fibromyalgia M79.7
[2025-09-27 11:48] VITALS: BMI 42.9
--- OUTSIDE RECORDS SUMMARY | 2025-09-27 13:04 | XMS_ITS | Encounter Summary ---
Author Organization [employer] [facility] Address [address] [place] [address] Care Team Providers Care Upholstery Technician Name Role Phone Unavailable Primary Care Provider [...]
--- OUTSIDE RECORDS SUMMARY | 2025-09-27 13:04 | XMS_ITS | Clinical Summary ---
Author Organization [facility] Address [address] [place] [address] Care Team Providers Care Trial Judge Name Role Phone Shanda Law Primary Care Provider [phone] Social History Tobacco Use Types Packs/Day Years [...] age to complete this topic Care Teams Trial Judge Relationship Specialty Start Date End Date Shanda Law PA [address] [place] [address] PCP - General 07/06/24
--- OUTSIDE RECORDS SUMMARY | 2025-09-27 13:04 | XMS_ITS | Clinical Summary ---
Author Organization [employer] [facility] Address [address] [place] [address] Phone Care Team Providers Care Gas Pump Attendant Name Role Phone Shanda Law Primary Care Provider [phone] Social History Tobacco Use Types Packs/Day Years [...] ACO C3 ACO C3 ACO C3 ACO [facility] C3 ACO Care Teams Gas Pump Attendant Relationship Specialty Start Date End Date Shanda Law PA [address] [place] [address] PCP - General Physician Auditing Clerk 03/19/25 Additional Source Comments The information contained in this document represents components of the legal health record. It is not the complete legal health record.[facility]
--- OUTSIDE RECORDS SUMMARY | 2025-09-27 13:04 | XMS_ITS | Clinical Summary ---
Author Organization [employer] Address [address] [facility] [address] [place] [address] Care Team Providers Care After School Teacher Name Role Phone Unavailable Primary Care Provider [...]
== END 2025-09-27 12:16 | disposition home or self-care (01) ==
LOC: HO.HOS 11:25
PROVIDERS: PCP Physician Assistant Medical; Visit Provider Physical Medicine & Rehabilitation
DX: M79.7 Fibromyalgia (principal)
CPT/HCPCS: 99213

== ENCOUNTER 2025-10-22 15:17 | Outpatient (AMB) | payer MEDICAID, SELFPAY ==
[2025-10-22 15:25] VITALS: BMI 42.9
--- NOTE | 2025-10-22 15:25 | A.OFFVIS_ITS ---
Vital Signs 10/22/25 15:25 Height 5 ft 4 in Weight 250 lb BMI 42.9 Intake Visit Reasons: N/prob-B/L hand pain/Swelling-right one worse Intake Note: Amira 60 yr old right hand dominant female presents today for a new problem visit for bilateral hand pain. States her right is currently worse. At times she feels like her hand swells with activities, pain, numbness and tingling on her thumb and index finger. She has on and off numbness in the day time and constant numbness at night time. No injury she can recall however she has had multiple falls. 01/04/25 EMG done: IMPRESSION: 1. This is a normal study. 2. There is no electrodiagnostic evidence for median neuropathy, ulnar neuropathy, brachial plexopathy, or cervical radiculopathy. Napping Machine Operator Name: Raquel MARCANO/JOSUE Allergies metformin Allergy (Severe, Verified 10/22/25 15:30) blisters shrimp Adverse Reaction (Intermediate, Verified 10/22/25 15:29) Swelling HPI HPI N/prob-B/L hand pain/Swelling-right one worse: Details: Amira is a 60 year old right hand dominant Namibian speaking woman who presents with multiple complaints. She complains of bilateral hand pain & swelling, R>L. She says she has pain in all her fingers & joints, along with stiffness. She also complains of weakness in her hands and difficulty gripping objects. She says her hands swell throughout the day, worse following activities. She is hesitant to fully move her hands due to her pain & stiffness. She also complains of numbness & tingling in her hands, primarily her thumb & index fingers. She says this is intermittent during the day and constant at night. She says this has been present for ~1-2 years now. She has been following with Dr. Cedeno for multiple joint pain issues & Fibromyalgia. Her NCS from 01/04/25 was unremarkable. She has a hx of Fibromyalgia diagnosed by Rheumatology, diabetes, and bilateral shoulder pain. She is out of work on Disability, and says she has not worked in ~10 years. She used to work at a meat packing plant in [facility] Medical History (Updated 10/22/25 @ 15:42 by Mitch Britton) Bilateral elbow joint pain Shoulder pain, bilateral Numbness in both hands Social History Current occupational status: unemployed and disabled Current occupation: right hand Review of Systems Const All systems reviewed & are unremarkable except as noted in HPI and below Physical Exam Vital Signs: BMI result Body Mass Index 42.9 Const General: cooperative, healthy appearing and no acute distress Orientation/consciousness: patient oriented x3 HEENT Head: Yes normocephalic and Yes atraumatic Eyes EOM: EOMs intact bilaterally Resp Effort & Inspection: normal respiratory effort and able to speak in complete sentences Cardio Jugular venous distension: no JVD Skin General skin exam: turgor normal Rashes: no rashes Neuro General: patient oriented x3 Extrem Other: Evaluation of Bilateral Upper Extremity: The patient is alert, oriented, and in no acute distress Neuro: Median, Ulnar, Radial nerves motor and sensory grossly intact No thenar or intrinsic wasting Vascular: Cap refill brisk ROM: She holds her fingers in extension all the time when at rest while in clinic today, which she says causes numbness in her fingers. And I asked her why she is holding her fingers extended, she says that when she allows her fingers to rest in partial flexion that causes pain. The pain is on the dorsum of the hand when she allows him to come into flexion With encouragement she could make a fist and extend all her digits No locking or catching Skin: No lacerations or abrasions. General: No Ecchymosis. No Erythema or evidence of infection. Given her BMI of 42.9, it is unclear if she has finger swelling or increased Ad ipose tissue in her fingers Radiographs: 3 views of the right hand from 05/10/25 were reviewed by me today in clinic. They show no fractures or dislocations, and no appreciable arthritic changes 3 views of the right elbow from 05/10/25 were reviewed by me today in clinic. They show no fractures or dislocations, and no appreciable arthritic changes Nerve Conduction Study: IMPRESSION: 1. This is a normal study. 2. There is no electrodiagnostic evidence for median neuropathy, ulnar neuropathy, brachial plexopathy, or cervical radiculopathy. Thank you for your kind referral. Luz Israel MD, SETH 01/04/25 Psych Appearance: grossly normal Affect: normal affect Attitude: cooperative Assessment & Plan Assessment & Plan (1) Fibromyalgia: Code(s): M79.7 - Fibromyalgia Category: Medical (2) Diabetes mellitus: Code(s): E11.9 - Type 2 diabetes mellitus without complications Category: Medical (3) Bilateral hand pain: Code(s): M79.641 - Pain in right hand; M79.642 - Pain in left hand Category: Medical (4) Bilateral hand swelling: Code(s): M79.89 - Other specified soft tissue disorders Category: Medical (5) Numbness in both hands: Code(s): R20.0 - Anesthesia of skin Category: Medical Plan Assessment & Plan: 1. Bilateral hand pain She also has elbow pain, shoulder pain, and fibromyalgia per rheumatology according to the patient 2. Bilateral hand numbness With a negative EMG nerve conduction study I educated her about activity modification and the importance of maintaining active motion of her joints. I educated her about arthritis and the nature of arthritis. Again I do not see any arthritic changes on her radiographs at this time. I see no operative indications or indications for injections. I recommend activity modification & OT hand therapy with the goal of returning to normal use and function of her hands. I ordered OT hand therapy to work on stretching, strengthening, and normalizing function She should work on gentle ROM exercises at home, 20x daily She can follow up prn 3. Bilateral hand numbness EMG/NCS from 01/04/25 was unremarkable Please note that greater than 40 minutes was spent with this patient going over the history, evaluating the patient and radiographs, formulating possible treatment options, discussing them with the patient, and documenting the visit. Scribed for Anita Bates MD by Mitch Britton nuclear medicine medical director, on 10/22/25 at 3:35 PM, EST. Orders: Orders OT Evaluation and Treatment Today E11.9 - Type 2 diabetes mellitus without complications, M25.532 - Pain in left wrist, M79.641 - Pain in right hand, M79.642 - Pain in left hand, M79.7 - Fibromyalgia, R20.0 - Anesthesia of skin Coding Level of Care Code New Pt Level 4 (81159) Diagnoses Fibromyalgia M79.7 Diabetes mellitus E11.9 Bilateral hand pain M79.641; M79.642 Bilateral hand swelling M79.89 Numbness in both hands R20.0
--- OUTSIDE RECORDS SUMMARY | 2025-10-22 18:59 | XMS_ITS | Clinical Summary ---
Author Organization [facility] ity Address [address] [place] [address] Care Team Providers Care Weir Fisherman Name Role Phone Shanda Law Primary Care Provider [phone] Social History Tobacco Use Types Packs/Day Years [...] Depression Screening 11/28/2024 COVID-19 Vaccine (1 - 2024-2 6 season) 2025 Influenza Vaccine (#1) 2025 RSV [...] age to complete this topic Care Teams Weir Fisherman Relationship Specialty Start Date End Date Shanda Law PA [address] [place] [address] PCP - General 07/06/24
--- OUTSIDE RECORDS SUMMARY | 2025-10-22 18:59 | XMS_ITS | Clinical Summary ---
Author Organization [facility] Address [address] [place] [address] Phone Care Team Providers Care Fur Trimmer Name Role Phone Shanda Law Primary Care Provider [phone] Social History Tobacco Use Types Packs/Day Years [...] ACO C3 ACO C3 ACO C3 ACO [facility] C3 ACO Care Teams Fur Trimmer Relationship Specialty Start Date End Date Shanda Law PA [address] [place] [address] PCP - General Physician Custom Studio Coordinator 03/19/25 Additional Source Comments The information contained in this document represents components of the legal health record. It is not the complete legal health record.[facility]
--- OUTSIDE RECORDS SUMMARY | 2025-10-22 18:59 | XMS_ITS | Encounter Summary ---
Author Organization [facility] Address [address] [place] [address] Care Team Providers Care Chalk Cutter Name Role Phone Unavailable Primary Care Provider [...]
--- OUTSIDE RECORDS SUMMARY | 2025-10-22 18:59 | XMS_ITS | Clinical Summary ---
Author Organization [employer] Address [address] [facility] [address] [place] [address] Care Team Providers Care Flare Maker Name Role Phone Unavailable Primary Care Provider [...]
== END 2025-10-22 16:01 | disposition home or self-care (01) ==
PROVIDERS: PCP Physician Assistant Medical; Visit Provider Orthopaedic Surgery
DX: M79.7 Fibromyalgia (principal); E11.9 Type 2 diabetes mellitus without complications; M79.641 Pain in right hand; M79.642 Pain in left hand; M79.89 Other specified soft tissue disorders; R20.0 Anesthesia of skin
CPT/HCPCS: 99204

== ENCOUNTER → 2025-10-22 15:17 | Outpatient (BNVA) | payer MEDICAID, SELFPAY | PROVIDERS: PCP Physician Assistant Medical; Visit Provider Orthopaedic Surgery | DX: M79.7 Fibromyalgia (principal); M79.641 Pain in right hand; M79.642 Pain in left hand; M79.89 Other specified soft tissue disorders; R20.0 Anesthesia of skin; E11.9 Type 2 diabetes mellitus without complications | CPT/HCPCS: 99202 ==

== ENCOUNTER 2025-11-22 13:10 | Outpatient (REF) | payer MEDICAID, SELFPAY ==
--- NOTE | ~2025-11-22 | CT_ITS ---
EXAMINATION: CT SOFT TISSUE NECK WITH CONTRAST CLINICAL INFORMATION: Spondylosis without myelopathy or radiculopathy. COMPARISON: None available. TECHNIQUE: Following the intravenous administration of 60 mL of Omnipaque 350 intravenous contrast, helical imaging was performed in the axial plane with generation of coronal and sagittal reformatted images. This CT examination was performed using dose optimization techniques as appropriate, variously including the following: *Automated exposure control *Adjustment of mA and/or kV according to patient size (this includes techniques or standardized protocols for targeted exams where dose is matched to indication/reason for exam; i.e. extremities or head) *Use of iterative reconstruction technique DLP: 291 FINDINGS: Visualized intracranial brain parenchyma appears unremarkable. There is normal enhancement of intracranial major vessels. Optic globe, optic nerve and the periorbital soft tissues are normal. Minimal mucoperiosteal thickening right maxillary sinus seen. Rest of the paranasal sinuses and mastoid air cells are well-aerated. Visualized bilateral parotid and submandibular glands are normal. The nasal cavity, nasopharyngeal and laryngeal airway is widely patent. No soft tissue mass or midline shift seen in the oral cavity or the pharynx. No abnormal neck lymphadenopathy seen. Incidental note is made of enlarged heterogenous right thyroid lobe with mild deviation of trachea to the left. The left thyroid lobe is normal. No abnormal supra clavicular lymph nodes or mass. The lung apices are clear. There is mild ventral spondylosis C5-6, C6-C7 and C7-T1 disc levels. CT/CT soft tissue neck w IV con IMPRESSION: Enlarged heterogenous right thyroid lobe suggestive of goiter. This is the same abnormality seen on MRI as prevertebral soft tissue nodularity. If clinically indicated correlation with ultrasound can be performed. Rest of the CT neck with contrast is grossly unremarkable. Electronically signed by: Larry Orourke MD 11/22/2025 02:13 PM [facility]
--- OUTSIDE RECORDS SUMMARY | 2025-11-22 13:13 | XMS_ITS | Clinical Summary ---
Author Organization [facility] Address [address] [place] [address] Phone Care Team Providers Care Quality Assurance Engineer Name Role Phone Shanda Law PA-C Primary [...] ACO C3 ACO C3 ACO C3 ACO [facility] C3 ACO Care Teams Quality Assurance Engineer Relationship Specialty Start Date End Date Shanda Law PA-C [address] [place] [address] PCP - General Physician Handle Turner 03/19/25 Additional Source Comments The information contained in this document represents components of the legal health record. It is not the complete legal health record.[facility]
--- OUTSIDE RECORDS SUMMARY | 2025-11-22 13:13 | XMS_ITS | Clinical Summary ---
Author Organization [facility] [address] [facility] Address [address] [place] [address] Phone Care Team Providers Care Blindstitch Lapel Padder Name Role Phone Shanda Law Primary Care Provider [phone] Allergies Active Allergy Reactions Criticality Noted Date Comments Iodine 01/12/2018 Metformin Hives 11/06/2025 Shellfish Containing Products 2017 Medications DULoxetine (CYMBALTA) [address] capsule Take 1 capsule (20 mg total) by mouth 1 (one) time each day. Do not crush or chew. Active hydrOXYzine pamoate (VISTARIL) 50 mg capsule Take 1 capsule (50 mg total) by mouth 3 (three) times a day if needed for itching. Active sertraline (ZOLOFT) 25 mg tablet Take 1 tablet (25 mg total) by mouth 1 (one) time each day. Active calcium carbonate 1,500 mg (600 mg elemental calcium) tablet Take 1 tablet (1,500 mg total) by mouth. Active empagliflozin (Jardiance) 10 mg tablet Take 1 tablet (10 mg total) by mouth 1 (one) time each day. Active lisinopril-hydr oCHLOROthiazide (PRINZIDE,ZESTO RETIC) 20-12.5 mg per tablet Take 1 tablet by mouth 1 (one) time each day. Active tiZANidine (ZANAFLEX) 4 mg tablet Take by mouth. Active Encounters Date Type Department Care Team Description 11/15/2025 3:00 PM EST Evaluation [facility] [address] [address] Keyona Nesbitt, OT Bilateral hand pain; Bilateral hand numbness 11/06/2025 Telephone Gastroenterology - [place] [facility] [address] [facility] [address] [place] [phone] Asia Hutchinson MD from Last 3 Months Social History Tobacco Use Types Packs/Day Years Used Date Smoking Tobacco: Former Cigarettes 2 40 1 - 2021 Tobacco Cessation:Counseling Given: Not Answered Comments Unknown Sex and Gender Information Value Date Recorded Sex Assigned at Female 11/07/2025 1:29 PM EST Legal Sex Female 9:51 AM EST Gender Identity Female 11/07/2025 1:29 PM EST Sexual Orientation Straight 11/07/2025 1: 29 PM EST Last Filed Vital Signs Vital Sign [place] [...] 04/22/2023 10:37 AM EDT Plan of Treatment Upcoming Encounters Date Type Department Care Team (Late st Contact Info) Description 12/30/2025 2:30 PM EST Clinical Support Lung Screening Program - [place] [address] [facility] [address] [place] [id number] 12/30/2025 3:[address] [facility] CT Scan [address] [place] [phone] Health Maintenance Due Date Last Done Comments Breast Cancer Screening 1967 Diabetes: Annual Foot Exam 1977 Diabetes: Annual Retina Eye Exam 1977 Cervical Cancer Screening: Pap Smear 1988 Pneumococcal Vaccine: 50+ Years (1 of 1 - PCV) 2017 RSV Immunization Adult Patients (1 - Risk 50-74 years 1-dose series) 2017 Hepatitis C Screening 10/26/2022 Lung Cancer Screening (Low Dose CT) 10/26/2022 Social Influencers of Health Screening 10/26/2022 Depression Screening 11/28/2024 COVID-19 Vaccine ( season) 2025 12/12/2021, 04/16/2021, 03/21/2021 Influenza Vaccine (#1) 2025 , 12/12/2021, 10/23/2018, Additional history exists Diabetes: Annual Urine Albumin-Creatinine Ratio (uACR) 01/22/2026 01/22/2025, 01/02/2018 Diabetes: Blood Sugar Control Test (HGBA1C) 05/02/2026 11/01/2025 Diabetes: Annual GFR (Glomerular Filtration Rate) 11/01/2026 11/01/2025 Hypertension/CHF/CAD Annual BMP Blood Test 11/01/2026 11/01/2025 DTaP,Tdap,and Td Vaccines (2 - Td or Tdap) 02/09/2029 02/09/2019 Cholesterol Screening (Lipid Panel) 11/01/2030 11/01/2025, 11/01/2025, 01/09/2025, Additional history exists Colorectal Cancer Screening: Colonoscopy 11/08/2035 11/08/2025 HIV Screening Completed 02/09/2019 Hepatitis B Vaccines [...] to complete this topic RSV Immunization Patients Under 20 months Aged Out No longer eligible based on patient's age to complete this topic Varicella Vaccines Aged Out No longer eligible based on patient's age to complete this topic Procedures Procedure Name Priority Date/Time Associated Diagnosis Comments HP LINK COLONOSCOPY Routine 11/08/2025 10:54 AM EST from Last 3 Months Results * HM Colonoscopy (11/08/2025 10:54 AM EST) us Historical Provider HEALTH MAINTENANCE Final Result from Last 3 Months Insurance MEDICAID - [place] Care Teams Blindstitch Lapel Padder Relationship Specialty Start Date End Date Shanda Law PA [facility] [place] [address] PCP - General 07/06/24
--- OUTSIDE RECORDS SUMMARY | 2025-11-22 13:13 | XMS_ITS | Clinical Summary ---
Author Organization [employer] Address [address] [facility] [address] [place] [address] Care Team Providers Care Seat Builder Name Role Phone Unavailable Primary Care Provider [...]
--- OUTSIDE RECORDS SUMMARY | 2025-11-22 13:13 | XMS_ITS | Encounter Summary ---
Author Organization [facility] Address [address] [place] [address] Care Team Providers Care Automatic Furnace Operator Name Role Phone Unavailable Primary Care [...]
[2025-11-22] MEDS: iohexoL 350 MG/ML 100 ML INFUS..BTL IV (13:49)
== END 2025-11-22 13:11 | disposition home or self-care (01) ==
LOC: HO.CT 13:10
PROVIDERS: PCP Physician Assistant Medical; Visit Provider Physical Medicine & Rehabilitation
DX: M47.812 Spondylosis without myelopathy or radiculopathy, cervical region (principal)
CPT/HCPCS: 70491; Q9967

== ENCOUNTER → 2025-11-22 13:13 | Outpatient (BNV) | payer MEDICAID, SELFPAY | PROVIDERS: PCP Physician Assistant Medical; Visit Provider Radiology Diagnostic Radiology | DX: M47.812 Spondylosis without myelopathy or radiculopathy, cervical region (principal); E07.89 Other specified disorders of thyroid | CPT/HCPCS: 70491 ==